=== PATIENT | male | born 1950 | race Caucasian/White ===

== ENCOUNTER 2016-05-04 16:34 | Inpatient (IN) | payer MEDICAID, OTHER ==
[~2016-05-04] VITALS: Ht 167.6 cm; Wt 104.6 kg
[~2016-05-04 16:34] MED LIST: BACTDS PO; CEPH-443 PO; IBUP400T22 PO
[2016-05-04 17:42] LABS: ADD UMIC YES; URINE BILIRUBIN (Dip) NEGATIVE (NEGATIVE); URINE BLOOD (Dip) TRACE (NEGATIVE); URINE COLOR LT. YELLOW (YELLOW); URINE GLUCOSE (Dip) >=1000 % (NEGATIVE); URINE KETONES (Dip) NEGATIVE (NEGATIVE); URINE LEUKOCYTE ESTERASE (Dip) NEGATIVE (NEGATIVE); URINE NITRITE (Dip) NEGATIVE (NEGATIVE); URINE TOTAL PROTEIN (Dip) 2+ (NEGATIVE); URINE UROBILINOGEN (Dip) 0.2 E.U./dL (0.1-1.0)
[2016-05-04 17:44] LABS: BASOPHIL # 0.3 10^3/ul (0.0-0.1); BASOPHILS % 2.2 % (0.0-2.0); EOSINOPHILS # 0.2 10^3/ul (0.0-0.5); EOSINOPHILS % 1.5 % (0.0-7.0); HEMATOCRIT 41.9 % (42.0-52.0); HEMOGLOBIN 13.8 g/dl (14.0-18.0); LYMPHOCYTES # 2.6 10^3/ul (0.8-2.9); LYMPHOCYTES % 20.1 % (15.0-51.0); MEAN CORPUSCULAR HEMOGLOBIN 29.3 pg (29.0-33.0); MEAN CORPUSCULAR VOLUME 88.8 fl (82.0-101.0); MONOCYTE # 0.6 10^3/ul (0.3-0.9); NEUTROPHIL # 9.1 10^3/ul (1.6-7.5); NEUTROPHILS % 71.2 % (39.0-77.0); PLATELET COUNT 277 10^3/UL (140-440); RED BLOOD COUNT 4.71 10^6/ul (4.70-6.10); RED CELL DISTRIBUTION WIDTH 13.9 % (11.5-14.5); UNCORRECTED WBC 12.7 10^3/ul (4.8-10.8); WHITE BLOOD COUNT 12.7 10^3/ul (4.8-10.8)
[2016-05-04 17:45] LABS: CONDITION 1
[2016-05-04] MEDS ORDERED: ASPI-664 PO (17:48)
[2016-05-04] MEDS ORDERED: LISI-313 PO (17:48)
[2016-05-04] MEDS ORDERED: METO25TA7 PO (17:49)
[2016-05-04 17:51] LABS: INR 0.92; POTASSIUM 4.1 mmol/L (3.5-5.1); PROTIME 12.4 Sec (12.2-14.2)
[2016-05-04 17:52] LABS: PARTIAL THROMBOPLASTIN TIME 30.4 Sec (25.0-35.0)
[2016-05-04 17:53] LABS: CREATININE 0.74 mg/dl (0.61-1.24)
[2016-05-04 17:54] LABS: CALCIUM 8.8 mg/dl (8.4-10.2)
--- NOTE | 2016-05-04 17:55 | RADRPT ---
PROCEDURE: XR Chest. CLINICAL INDICATION: Stroke. TECHNIQUE: Portable AP semi-erect view of the chest was obtained. COMPARISON: 04/08/2015 FINDINGS: The cardiomediastinal silhouette is within normal limits. The lungs are clear. There is no evidenc e for pleural effusion, pneumothorax or pulmonary vascular congestion. Degenerative spondylosis of the thoracic spine is again noted. There is no evidence of acute osseous abnormality. Previously se en PICC is been removed in the interval. RPTAT:HJJR IMPRESSION: No evidence for acute intrathoracic pathology. Physician Kera Date Time Electronically viewed and signed by Physician Kera on 05/04/2016 17:55 JR/
[2016-05-04 18:05] LABS: CANNABINOIDS Negative (NEGATIVE); COCAINE Negative (NEGATIVE); OPIATES Negative (NEGATIVE); SQUAMOUS EPITHELIAL CELL,UR FEW; URINE RBCS 0-2 /HPF (0)
[2016-05-04 18:06] LABS: TROPONIN-I 0.013 ng/ml (0.00-0.12)
[2016-05-04 18:21] LABS: BARBITURATES Negative (NEGATIVE); BENZODIAZEPINES Negative (NEGATIVE)
--- NOTE | 2016-05-04 18:41 | RADRPT ---
PROCEDURE: CT Brain without. CLINICAL INDICATION: CVA. TECHNIQUE: A CT of the brain was performed on multidetector high-resolution CT scanner utilizing a xial sections from the skull base through the vertex without contrast. The scan was reviewed in sof t tissue brain and high frequency resolution bone algorithm windows. Images were reviewed on a high -resolution PACS workstation. One or more the following does reduction techniques were utilized: Aut omated exposure control, adjustment of the mA/ or kV according to patient's size, or use of iterativ e reconstruction technique. The exam CTDI = 50.55 mGy and the DLP = 817.78 mGy-cm. COMPARISON: None available. FINDINGS: The ventricles and sulci are mildly prominent indicative of volume loss. There is no intracranial he morrhage, mass effect or midline shift. No abnormal intra-axial or extra-axial fluid collections ar e seen. The astorga/white matter differentiation is preserved. There is an 8 mm focal hypodensity in th e right negrete radiata which likely represent an age indeterminate infarct. There are mild scattered foci of hypoattenuation in the white matter, which are nonspecific in etiol ogy but likely reflect chronic small vessel ischemic changes. There are mild intracranial vascular calcifications consistent with atherosclerosis. The visualized paranasal sinuses are essentially carloz ar. IMPRESSION: 1. An 8 mm age indeterminate infarct in the right negrete radiata. Please note MRI is more sensitive for detection of acute ischemia and can be obtained as clinically warranted. 2. Mild intracranial atherosclerosis and chronic small vessel ischemic changes. 3. Mild generalized cerebral volume loss. RPTAT: HH .Ranjana Hudson MD, MD Date Time Electronically viewed and signed by .Ranjana Hudson MD, MD on 05/04/2016 18:40 .N/
[2016-05-04] MEDS ORDERED: ASPIRIN 325 MG TAB PO ONE (19:00)
[2016-05-04] MEDS ORDERED: SOD CHLORIDE 0.9% 1,000 ML IV SCH (19:20)
--- NOTE | 2016-05-04 19:25 | ERA ---
ER Documentation Chief Complaint Date/Time DATE: 05/04/16 TIME: 19:22 Chief Complaint slurring speech. unknown last well time. l side facial droop. l leg weaknes HPI This is a 65-year-old male who presents to the emergency room for evaluation of slurred speech, and left-sided facial droop which started at 4 AM this morning. The patient is also complaining of left leg weakness when walking. The patient states that he did not come to the emergency room because he did not have a ride. This patient denies any other symptoms or blurred vision or chest pain or shortness of breath at this time ROS All systems reviewed and are negative except as per history of present illness. Medications Home Meds Reported Medications Metoprolol Succinate* (Toprol XL*) 25 Mg Tab.sr.24h, 25 MG PO DAILY, #30 TAB 05/04/16 Lisinopril* (Lisinopril*) 5 Mg Tablet, 5 MG PO DAILY, #30 TAB 05/04/16 Aspirin* (Aspirin* EC) 81 Mg Tablet.dr, 81 MG PO DAILY, TAB 05/04/16 Discontinued Scripts Ibuprofen* (Motrin*) 400 Mg Tab, 400 MG PO Q6 for 7 Days, #30 TAB 0 Refills Prov:HASEEB LÓPEZ PA-C 01/23/16 Sulfamethoxazole-Trimethoprim* (Bactrim* DS) 800-160 Mg Tab, 1 TAB PO BID for 7 Days, #14 TAB 0 Refills Prov:HASEEB LÓPEZ PA-C 01/23/16 Cephalexin* (Keflex*) 500 Mg Capsule, 500 MG PO TID for 7 Days, #21 CAP 0 Refills Prov:HASEEB LÓPEZ PA-C 01/23/16 Allergies Allergies: Coded Allergies: No Known Allergy (Unverified , 05/04/16) PMhx/Soc History of Surgery: Yes (debridement L foot) Hx Neurological Disorder: No Hx Respiratory Disorders: No Hx Cardiac Disorders: Yes (HTN) Hx Psychiatric Problems: No Hx Miscellaneous Medical Probl: Yes (DM, HTN) Hx Alcohol Use: No Hx Substance Use: No Hx Tobacco Use: No Smoking Status: Never smoker Physical Exam Vitals Vital Signs Date Time Temp Pulse Resp B/P Pulse Ox O2 Delivery O2 Flow Rate FiO2 05/04/16 19:04 98.6 80 18 164/83 99 Room Air 05/04/16 18:07 83 18 133/69 99 Room Air 05/04/16 16:38 98.6 89 20 176/81 99 Physical Exam INITIAL VITAL SIGNS: Reviewed by me GENERAL: The patient is well developed and appropriate for usual state of health in no apparent distress HEENT: Pupils equal, round, and reactive to light. EOMI. There is no scleral icterus. NECK: C-spine is soft and supple, there is no meningismus. There is no cervical lymphadenopathy. LUNGS: Clear to auscultation bilaterally. There are no rales, wheezes or rhonchi. HEART: Regular rate and rhythm, no murmurs, clicks, rubs or gallops. ABDOMEN: Soft, non-tender, non-distended. There are bowel sounds in all four quadrants. No rebound or guarding. EXTREMITIES: There is no peripheral cyanosis or edema. No focal swelling or erythema. NEUROLOGICAL: 5 out of 5 strength in the right upper and right lower extremity, 3 out of 5 strength in the left upper and left lower extremity. Left-sided facial droop, slurred speech, no disability in raising left eyebrow. SKIN: There is no apparent rash or petechiae. HEME/LYMPHATIC: There is no evidence of excessive bruising or lymphedema. PSYCHIATRIC: The patient does not appear anxious or depressed. Result Diagram: 05/04/16 1715 05/04/16 171 Results 24 hrs Laboratory Tests Test 05/04/16 17:15 05/04/16 17:20 Activated Partial Thromboplast Time 30.4Sec Anion Gap 15 Basophils # 0.310^3/ul Basophils % 2.2% Blood Urea Nitrogen 13mg/dl Calcium Level 8.8mg/dl Carbon Dioxide Level 29mmol/L Chloride Level 101mmol/L Creatinine 0.74mg/dl Eosinophils # 0.210^3/ul Eosinophils % 1.5% Glucose Level 297mg/dl Hematocrit 41.9% Hemoglobin 13.8g/dl Hemoglobin A1c 13.2% INR International Normalized Ratio 0.92 Lymphocytes # 2.610^3/ul Lymphocytes % 20.1% Mean Corpuscular Hemoglobin 29.3pg Mean Corpuscular Hemoglobin Concent 33.0g/dl Mean Corpuscular Volume 88.8fl Mean Platelet Volume 10.0fl Monocytes # 0.610^3/ul Monocytes % 5.0% Neutrophils # 9.110^3/ul Neutrophils % 71.2% Nucleated Red Blood Cells # 0.010^3/ul Nucleated Red Blood Cells % 0.0/100WBC Platelet Count 29040^3/UL Potassium Level 4.1mmol/L Prothrombin Time 12.4Sec Prothrombin Time Ratio 1.0 Red Blood Count 4.7110^6/ul Red Cell Distribution Width 13.9% Sodium Level 141mmol/L Troponin I 0.013ng/ml White Blood Count 12.710^3/ul Urine Amphetamines Screen Negative Urine Barbiturates Negative Urine Benzodiazepines Screen Negative Urine Bilirubin NEGATIVE Urine Cannabinoids Negative Urine Clarity CLEAR Urine Cocaine Screen Negative Urine Color LT. YELLOW Urine Glucose >=1000% Urine Hemoglobin TRACE Urine Ketones NEGATIVE Urine Leukocyte Esterase NEGATIVE Urine Microscopic RBC 0-2/HPF Urine Microscopic WBC NONE SEEN/HPF Urine Nitrite NEGATIVE Urine Opiates Screen Negative Urine Specific [place] >=1.030 Urine Squamous Epithelial Cells FEW Urine Total Protein 2+ Urine Urobilinogen 0.2 E.U./dL Urine pH 5.5 Current Medications Medications (Trade) Dose Ordered Sig/Kalina Route PRN Reason Start Time Stop Time Status Last Admin Dose Admin Aspirin (Aspirin) 325 mg ONCE ONCE PO 05/04/16 19:00 05/04/16 19:01 DC Procedures/MDM EKG: Rate/Rhythm: [Normal Sinus Rhythm] QRS, ST, T-waves: [No changes consistent w/ acute ischemia] Impression: [No evidence of ischemia or arrhythmia] Chest X-ray 1V Interpreted by me: Soft Tissue: No acute abnormalities Bones: No acute abnormalities Mediastinum/Cardiac Silhouette/Lungs: [No acute abnormalities] CT head without: 1. An 8 mm age indeterminate infarct in the right negrete radiata. Please note MRI is more sensitive for detection of acute ischemia and can be obtained as clinically warranted. 2. Mild intracranial atherosclerosis and chronic small vessel ischemic changes. 3. Mild generalized cerebral volume loss. This 65-year-old male presents to the ER for evaluation of slurred speech, and left-sided weakness. When I evaluated him he did have a facial droop, slurred speech, and left upper and left lower extremity weakness when compared to the right. CT of the head was obtained which does show an 8 mm age-indeterminate infarct in the right negrete radiata. This patient was given aspirin, was able to pass a bedside swallow. This patient is out of the timeframe for TPA. He is in no acute distress at this time. This patient will be placed in for admission for further evaluation and possible MRI. The patient is aware of his condition and is okay with her plan of care. The patient will be placed in for admission on a telemetry floor under the care of Dr. Rehman Departure Diagnosis: Primary Impression: CVA (cerebral vascular accident) Additional Impressions: Elevated glycosylated hemoglobin Uncontrolled diabetes mellitus Condition: Stable OZZIE LEMONS DO May 04, 2016 19:25
[2016-05-04] MEDS ORDERED: BISACODYL (EC) 5 MG TAB PO PRN (19:30)
[2016-05-04] MEDS ORDERED: ONDANSETRON 4 MG TAB PO PRN (19:30)
[2016-05-04] MEDS ORDERED: NITROGLYCERIN (SL) 0.4 MG TAB SL PRN (19:30)
[2016-05-04] MEDS ORDERED: ACETAMINOPHEN 325 MG TAB PO PRN ×2 (19:30)
[2016-05-04] MEDS ORDERED: NACL 0.9% 3 ML SYG IV SCH (19:30)
[2016-05-04] MEDS ORDERED: DOCUSATE SODIUM 100 MG CAP PO PRN (19:30)
[2016-05-04] MEDS ORDERED: ONDANSETRON 4 MG INJ IV PRN (19:30)
[2016-05-04] MEDS ORDERED: ACETAMINOPHEN 650 MG SUPP PR PRN (19:30)
[2016-05-04] MEDS ORDERED: INSULIN GLARGINE [LANtus] 3 ML PEN SC SCH (20:00)
[2016-05-04] MEDS ORDERED: GLUCOSE GEL 15 GRAM TUBE BUCCAL PRN (20:00)
[2016-05-04] MEDS ORDERED: GLUCOSE GEL 15 GRAM TUBE PO PRN ×2 (20:00)
[2016-05-04] MEDS ORDERED: GLUCAGON 1 MG INJ IM PRN (20:00)
[2016-05-04] MEDS ORDERED: DEXTROSE 50% 50 ML SYRINGE IV PRN ×2 (20:00)
[2016-05-04] MEDS: INSULIN ASPART [NOVOLOG] 3 ML PEN SC SCH (21:00)
--- NOTE | 2016-05-04 21:07 | RADRPT ---
PROCEDURE: US Lower extremity Venous. CLINICAL INDICATION: Pain and swelling. TECHNIQUE: Multiple sonographic images of the bilateral lower extremity deep venous system was obt ained utilizing grayscale, color-flow, compressive sonography and doppler imaging with augmentation. The images were reviewed on a PACS workstation. COMPARISON: None. FINDINGS: There is normal compressibility and flow within the bilateral common femoral, deep femoral, superfic ial femoral, right posterior tibial, peroneal and bilateral popliteal veins. Nonvisualization of th e left posterior tibial and peroneal veins secondary to marked lower extremity edema. IMPRESSION: No sonographic evidence for deep venous thrombosis. RPTAT:AAJJ Physician Kelley Date Time Electronically viewed and signed by Physician Kelley on 05/04/2016 21:07 LIZETTE/
[2016-05-04 21:08] VITALS: TEMP 98
--- NOTE | 2016-05-04 21:10 | RADRPT ---
PROCEDURE: Carotid Doppler ultrasound CLINICAL INDICATION: Carotid stenosis. CVA TECHNIQUE: Carotid duplex criteria: Multiple real time, astorga scale, and color flow and spectral w aveform analysis Doppler ultrasound images of the carotid bifurcations were obtained. Measurements of carotid stenosis is based on peak systolic and diastolic velocity parameters that correlate the r esidual internal carotid diameter with [place] symptomatic carotid endarterectomy trial (NASC ET) based stenosis levels. COMPARISON: None. FINDINGS: On the right, there is no significant plaque at the internal carotid artery bulb . The peak ICA velocity is 79.0 cm/sec. The ICA/CCA ratio there is 1.5. There is no spectral broadening . The external carotid artery is patent. The vertebral artery has antegrade flow. On the left, there is no significant plaque at the internal carotid artery bulb . The peak ICA velocity is 57.0 cm/sec. The ICA/CCA ratio there is 1.7. There is no spectral broadening . The external carotid artery is patent. The vertebral artery has antegrade flow. IMPRESSION: 1. No significant stenosis of the right internal carotid artery. 2. No significant stenosis of the left internal carotid artery. 3. Antegrade flow in the vertebral arteries. PRIMARY PARAMETERS ADDITIONAL PARAMETERS DEGREE OF STENOSIS: ICA PSV cm/s PLAQUE ESTIMATE % ICA/CCA PSV RATIO ICA E DV cm/s NORMAL <125 cm/s NONE < 2.0 < 40 cm/s < 50% >125 cm/s < 50% > 2.0 > 40 cm/s 50% - 69% 125 -230 cm/s > 50% 2.0 - 4.0 40 - 100 cm/s >70% < OCCLUSION > 230 cm/s > 70% > 4.0 > 100 cm/s TOTAL OCCLUSION UNDETECTABLE VISIBLE PLAQUE 100% N/A N/A Physician Kelley Date Time Electronically viewed and signed by Physician Kelley on 05/04/2016 21:10 LIZETTE/
[2016-05-04 21:45] VITALS: BP 156/80; PULSE 73; RESP 20; Ht 167.6 cm; Wt 104.6 kg
--- NOTE | 2016-05-04 23:53 | HP ---
DATE OF ADMISSION: 05/04/2016 DIRECTOR OF INTEGRATED MARKETING: Neurologist. CHIEF COMPLAINT: Right-sided facial droop. HISTORY OF PRESENT ILLNESS: This is a 65-year-old gentleman, past medical history of diabetes ezioi tus, hypertension, CVA, left lower extremity cellulitis who according to him had a CVA about 3 month s ago, and he did not follow up with any physician, but a month later he was seen at [facility] and was diagnosed with CVA. He also has been having left lower extremity erythema and was diagnosed wit h cellulitis and was discharged from [facility] with a PICC line and IV antibiotics x4 weeks and the n was placed on oral antibiotics. Yesterday morning on 05/03/2016 at 5 a.m., he woke up with left l ower extremity weakness and right-sided facial droop, and he thought that the symptoms would go away . Therefore, he did not seek any medical attention. Today on 05/04/2016, he presented to [facility] secondary to continued facial droop. CT of the brain was obtained which showed an 8 mm age-indeterminate infarct in the right negrete radiata, mild intracranial atherosclerosis and chronic small-vessel ischemic changes, mild general cerebral volume loss. The patient also has a h istory of hypertension, diabetes mellitus, dyslipidemia, and he has not been compliant with his Lant us. According to him, he has been lazy and has not gone to get his medication. He is a very poor h istorian, and he states that he sometimes takes some of his medication if he remembers to take them. Today upon arrival to emergency room, his temperature was 98.6, pulse 89, respirations 20, blood p ressure 176/81, oxygen saturation 99%. He denies having any chest pain, shortness of breath, nausea , vomiting, diarrhea. No headache, dizziness, lightheadedness. No change in visual acuity, diplopi a, photophobia. Positive for right-sided facial droop and left lower extremity weakness. No abdomi nal pain, no dysuria, no hematuria, no change in the color of stool. No hematemesis, melena or any other discomfort. PAST MEDICAL AND SURGICAL HISTORY: 1. Hypertension. 2. Morbid obesity. 3. Diabetes mellitus. 4. Noncompliance with medication. 5. Morbid obesity. 6. Left lower extremity cellulitis. 7. History of osteomyelitis of the left foot. 8. Diabetic neuropathy. 9. History of CVA with left-sided residual. MEDICATIONS: 1. Aspirin 81 mg. 2. Lisinopril 5 mg. 3. Toprol-XL 25 mg. 4. He also is supposed to be on Lantus, although he has been noncompliant with his Lantus. SOCIAL HISTORY: Never smoked. Remote history of alcohol use. No illicit drugs. FAMILY HISTORY: Positive for hypertension, diabetes mellitus and dyslipidemia. REVIEW OF SYSTEMS: As above per HPI. Otherwise, 12 review of systems have been found to be negativ e. PHYSICAL EXAMINATION: VITAL SIGNS: At this time, temperature 98.0, pulse 74, respirations 21, blood pressure 154/77, satu ration 99% on room air. GENERAL APPEARANCE: The patient is lying in the bed comfortably without any distress. He is awake, alert, oriented. He is able to answer my questions properly. The patient is morbidly obese. EYES, EARS, NOSE, THROAT: Conjunctivae and lids are normal. Pupils are normal. Extraocular normal . Hearing grossly normal. Oral mucosa moist. NECK: Supple. Trachea is midline. No lymphadenopathy. RESPIRATORY: Effort is normal. Clear to auscultate bilaterally. CARDIOVASCULAR: Normal S1, S2. Regular rhythm and rate. No murmur, no bruits, no edema. Peripher al pulses, radial pulses palpable. Capillary refill is normal. CHEST: Normal expansion during inspiration. ABDOMEN: Soft, nontender, not distended. Bowel sounds are present. No guarding, no rebound. GENITOURINARY: Deferred. MUSCULOSKELETAL: Upper extremities within normal limits. Lower extremities, there is significant d ifference between edema, swelling between right and left lower extremities. The left extremity, the re is evidence of cellulitis with stasis dermatitis from ankle down and nonpitting edema in left low er extremity ____. NEUROLOGIC: There is evidence of facial droop on the right side. Cranial nerves 2 to 12 seem gross ly intact. PSYCHIATRIC: He is awake, alert, is able to move his extremities. Motor is intact. LABORATORY WORK: WBC 12.7, hemoglobin 13.8, hematocrit 41.9, platelets 277. Sodium 141, potassium 4.1, chloride 101, bicarbonate 29, BUN 13, creatinine 0.74, glucose 294. Hemoglobin A1c 13.2. Calc ium 8.8. Troponin 0.013. ASSESSMENT AND PLAN: 1. Acute on chronic cerebrovascular accident with an 8 mm age-indeterminate infarct in the right co yenni radiata. We will obtain MRI of the brain, carotid Doppler, 2D echocardiogram. The patient has been placed on aspirin. Will follow up patient's lipid panel. Continue to monitor patient's blood pressure and treat accordingly. 2. Uncontrolled diabetes mellitus. Place the patient on insulin sliding scale, Lantus, low-carbohy drate diet. 3. Essential hypertension, mildly uncontrolled. Continue blood pressure medication. Will also nae ce the patient on p.r.n. hydralazine. 4. Noncompliance with medication. Education was provided. 5. Left lower extremity edema with no sonographic evidence of deep venous thrombosis. This is like ly secondary to chronic diabetic neuropathy and infection. Will start the patient on Levaquin. 6. Morbid obesity. Diet has been recommended. The patient will be recommended to be placed on low -calorie diet. 7. For deep venous thrombosis prophylaxis, on Lovenox. 8. For gastrointestinal prophylaxis, on proton pump inhibitor. 9. Continue to monitor patient closely. Further recommendations, management and treatment as per c reiical course. Total amount of time spent for evaluation of patient and admission workup was 40 minutes. Dictated By: ROXY SIMPSON/NTS Conf#: [id number] DID#: [id number]
[2016-05-05] VITALS (12 sets, daily range): BP systolic 134–166; BP diastolic 65–87; PULSE 71–140; RESP 17–20
[2016-05-05] MEDS: PANTOPRAZOLE (EC) 40 MG TAB PO SCH (05:34)
[2016-05-05] MEDS: ASPIRIN 81 MG TAB PO SCH (08:54)
[2016-05-05] MEDS: LISINOPRIL 5 MG TAB PO SCH (08:54)
[2016-05-05] MEDS: METOPROLOL (XL) 25 MG TAB PO SCH (08:55)
[2016-05-05] MEDS: ENOXAPARIN 40 MG/0.4 ML SYG SC SCH (08:57)
[2016-05-05] MEDS: INSULIN ASPART [NOVOLOG] 3 ML PEN SC SCH ×4 (08:58→21:36)
[2016-05-05 10:28] LABS: BASOPHILS % 0.3 % (0.0-2.0); EOSINOPHILS # 0.2 10^3/ul (0.0-0.5); EOSINOPHILS % 1.4 % (0.0-7.0); HEMATOCRIT 42.6 % (42.0-52.0); HEMOGLOBIN 13.9 g/dl (14.0-18.0); LYMPHOCYTES % 16.5 % (15.0-51.0); MEAN CORPUSCULAR HEMOGLOBIN 29.5 pg (29.0-33.0); MEAN CORPUSCULAR HGB CONC 32.6 g/dl (32.0-37.0); MEAN CORPUSCULAR VOLUME 90.4 fl (82.0-101.0); MEAN PLATELET VOLUME 11.2 fl (7.4-10.4); MONOCYTE # 0.6 10^3/ul (0.3-0.9); MONOCYTES % 4.7 % (0.0-11.0); NEUTROPHIL # 9.5 10^3/ul (1.6-7.5); NEUTROPHILS % 76.5 % (39.0-77.0); PLATELET COUNT 310 10^3/UL (140-415); RED BLOOD COUNT 4.71 10^6/ul (4.70-6.10); RED CELL DISTRIBUTION WIDTH 13.2 % (11.5-14.5); WHITE BLOOD COUNT 12.4 10^3/ul (4.8-10.8)
[2016-05-05 10:38] LABS: CREATININE 0.63 mg/dl (0.61-1.24)
[2016-05-05 10:39] LABS: CALCIUM 8.8 mg/dl (8.4-10.2); CHOL/HDL RATIO 5.1 RATIO; MAGNESIUM 1.9 mg/dl (1.7-2.5)
--- NOTE | 2016-05-05 11:47 | PN ---
Date/Time of Note Date/Time of Note DATE: 05/05/16 TIME: 11:37 Assessment/Plan VTE Prophylaxis VTE Prophylaxis Intervention: LMWH Lines/Catheters IV [facility]ter [facility] (from [facility] Peripheral IV Urinary Cath still in place: No Assessment/Plan Assessment/Plan 1. Acute on chronic cerebrovascular accident with an 8 mm age-indeterminate infarct in the right negrete radiata. We will obtain MRI of the brain, carotid Doppler, 2D echocardiogram. MRI pending . 2. Uncontrolled diabetes mellitus. Place the patient on insulin sliding scale , Lantus, low-carbohydrate diet. 3. Essential hypertension, mildly uncontrolled. Continue blood pressure medication. Will also place the patient on p.r.n. hydralazine. 4. Noncompliance with medication. Education was provided. 5. Left lower extremity edema with no sonographic evidence of deep venous thrombosis. This is likely secondary to chronic diabetic neuropathy and infection. Will start the patient on Levaquin. 6. Morbid obesity. Diet has been recommended. The patient will be recommended to be placed on low-calorie diet. 7. For deep venous thrombosis prophylaxis, on Lovenox. 8. For gastrointestinal prophylaxis, on proton pump inhibitor. 9. Continue to monitor patient closely. Further recommendations, management and treatment as per clinical course. Total amount of time spent for evaluation of patient and admission workup was 40 minutes. Subjective 24 Hr Interval Summary Free Text/Dictation awaitign MRI brain, Possible acute on chronic CVA, no focal deficits Exam/Review of Systems Vital Signs Vitals Vital Signs Date Time Temp Pulse Resp B/P Pulse Ox O2 Delivery O2 Flow Rate FiO2 05/05/16 10:11 136/68 05/05/16 08:16 98.5 77 20 96 05/05/16 04:00 Room Air Intake and Output 05/04/16 05/04/16 05/05/16 15:00 23:00 07:00 Intake Total 350 ml Balance 350 ml Exam GENERAL APPEARANCE: no acute distress EYES, EARS, NOSE, THROAT: Conjunctivae and lids are normal. Pupils are normal. Extraocular normal. Hearing grossly normal. Oral mucosa moist. NECK: Supple. Trachea is midline. No lymphadenopathy. RESPIRATORY: Effort is normal. Clear to auscultate bilaterally. CARDIOVASCULAR: Normal S1, S2. RRR, no murmur CHEST: Normal expansion during inspiration. ABDOMEN: Soft, nontender, not distended. Bowel sounds are present. No guarding, no rebound. GENITOURINARY: Deferred. MUSCULOSKELETAL: Upper extremities within normal limits. Lower extremities, there is significant difference between edema, swelling between right and left lower extremities. The left extremity, there is evidence of cellulitis with stasis dermatitis from ankle down and nonpitting edema in left lower extremity _ ___. NEUROLOGIC: There is evidence of facial droop on the right side. Cranial nerves 2 to 12 seem grossly intact. PSYCHIATRIC: He is awake, alert, is able to move his extremities. Motor is intact. Results Result Diagram: 05/05/16 0959 05/05/16 0959 Results 24 hrs Laboratory Tests Test 05/04/16 17:15 05/04/16 17:20 05/04/16 22:07 05/05/16 07:41 Activated Partial Thromboplast Time 30.4 Anion Gap 15 Basophils # 0.3 H Basophils % 2.2 H Blood Urea Nitrogen 13 Calcium Level 8.8 Carbon Dioxide Level 29 Chloride Level 101 Creatinine 0.74 Eosinophils # 0.2 Eosinophils % 1.5 Glucose Level 297 H Hematocrit 41.9 #L Hemoglobin 13.8 #L Hemoglobin A1c 13.2 H INR International Normalized Ratio 0.92 Lymphocytes # 2.6 Lymphocytes % 20.1 Mean Corpuscular Hemoglobin 29.3 Mean Corpuscular Hemoglobin Concent 33.0 Mean Corpuscular Volume 88.8 Mean Platelet Volume 10.0 Monocytes # 0.6 Monocytes % 5.0 Neutrophils # 9.1 H Neutrophils % 71.2 Nucleated Red Blood Cells # 0.0 Nucleated Red Blood Cells % 0.0 Platelet Count 277 # Potassium Level 4.1 Prothrombin Time 12.4 Prothrombin Time Ratio 1.0 Red Blood Count 4.71 # Red Cell Distribution Width 13.9 Sodium Level 141 Troponin I 0.013 White Blood Count 12.7 H Urine Amphetamines Screen Negative Urine Barbiturates Negative Urine Benzodiazepines Screen Negative Urine Bilirubin NEGATIVE Urine Cannabinoids Negative Urine Clarity CLEAR Urine Cocaine Screen Negative Urine Color LT. YELLOW Urine Glucose >=1000 Urine Hemoglobin TRACE Urine Ketones NEGATIVE Urine Leukocyte Esterase NEGATIVE Urine Microscopic RBC 0-2 Urine Microscopic WBC NONE SEEN Urine Nitrite NEGATIVE Urine Opiates Screen Negative Urine Specific [place] >=1.030 H Urine Squamous Epithelial Cells FEW Urine Total Protein 2+ H Urine Urobilinogen 0.2 E.U./dL Urine pH 5.5 Bedside Glucose 151 179 Test 05/05/16 09:59 Anion Gap 17 H Basophils # 0.0 Basophils % 0.3 Blood Urea Nitrogen 11 Calcium Level 8.8 Carbon Dioxide Level 26 Chloride Level 104 Cholesterol Level 144 Cholesterol/HDL Ratio 5.1 Creatinine 0.63 Eosinophils # 0.2 Eosinophils % 1.4 Glucose Level 240 H HDL Cholesterol 28 L Hematocrit 42.6 Hemoglobin 13.9 L LDL Cholesterol, Calculated 95 Lymphocytes # 2.0 Lymphocytes % 16.5 Magnesium Level 1.9 Mean Corpuscular Hemoglobin 29.5 Mean Corpuscular Hemoglobin Concent 32.6 Mean Corpuscular Volume 90.4 Mean Platelet Volume 11.2 H Monocytes # 0.6 Monocytes % 4.7 Neutrophils # 9.5 H Neutrophils % 76.5 Nucleated Red Blood Cells # 0.0 Nucleated Red Blood Cells % 0.0 Platelet Count 310 Potassium Level 4.0 Red Blood Count 4.71 Red Cell Distribution Width 13.2 Sodium Level 143 Thyroid Stimulating Hormone (TSH) Pending Triglycerides Level 107 White Blood Count 12.4 H Medications Medications Current Medications Ondansetron HCl (Zofran Tab) 4 mg Q6H PRN PO NAUSEA AND/OR VOMITING; Start at 19:30 Aspirin (Aspirin) 81 mg DAILY PO Last administered on 05/05/16 08:54; Admin Dose 81 MG; Start 05/05/16 at 09:00 Nitroglycerin (Nitroglycerin (Sl Tab) 0.4 Mg) 1 tab Q5M PRN SL CHEST PAIN; Start 05/04/16 at 19:30 Acetaminophen (Tylenol Tab) 650 mg Q6H PRN PO PAIN LEVEL 1-3 OR FEVER; Start at 19:30 Acetaminophen (Tylenol Supp) 650 mg Q6H PRN [place] PAIN LEVEL 1-3 OR FEVER; Start 05/04/16 at 19:30 Docusate Sodium (Colace) 100 mg Q12H PRN PO CONSTIPATION; Start 05/04/16 at 19: 30 Bisacodyl (Dulcolax) 5 mg DAILY PRN PO CONSTIPATION; Start 05/04/16 at 19:30 Pantoprazole (Protonix Tab) 40 mg DAILY@06 PO Last administered on 05/05/16 05 :34; Admin Dose 40 MG; Start 05/05/16 at 06:00 Enoxaparin Sodium (Lovenox) 40 mg DAILY SC Last administered on 05/05/16 08:57 ; Admin Dose 40 MG; Start 05/05/16 at 09:00 Lisinopril (Zestril) 5 mg DAILY PO Last administered on 05/05/16 08:54; Admin Dose 5 MG; Start 05/05/16 at 09:00 Metoprolol Succinate (Toprol Xl) 25 mg DAILY PO Last administered on 05/05/16 08:55; Admin Dose 25 MG; Start 05/05/16 at 09:00 Insulin Glargine (Lantus) 10 unit DAILY@20 SC Last administered on 05/04/16 22 :28; Admin Dose 10 UNIT; Start 05/04/16 at 20:00 Miscellaneous Information 1 ea NOTE XX ; Start 05/04/16 at 20:00 Glucose (Glutose) 15 gm Q15M PRN PO DECREASED GLUCOSE; Start 05/04/16 at 20:00 Glucose (Glutose) 22.5 gm Q15M PRN PO DECREASED GLUCOSE; Start 05/04/16 at 20: 00 Dextrose (D50w Syringe) 25 ml Q15M PRN IV DECREASED GLUCOSE; Start 05/04/16 at 20:00 Dextrose (D50w Syringe) 50 ml Q15M PRN IV DECREASED GLUCOSE; Start 05/04/16 at 20:00 Glucagon (Glucagen) 1 mg Q15M PRN IM DECREASED GLUCOSE; Start 05/04/16 at 20:00 Glucose (Glutose) 15 gm Q15M PRN BUCCAL DECREASED GLUCOSE; Start 05/04/16 at 20 :00 JOO RAMIREZ MD May 05, 2016 11:47
--- NOTE | 2016-05-05 11:51 | CONS ---
Date/Time of Note Date/Time of Note DATE: 05/05/16 TIME: 11:38 Assessment/Plan Assessment/Plan Chief Complaint/Hosp Course 65 year old male with history of obesity, HTN, HLD, previous CVA, recently treated for cellulitis, uncontrolled DM non-compliant with medications presenting with facial droop and left sided weakness. CTH suggestive of right negrete radiata infarct admitted for further work up. etiology likely small vessel disease secondary to uncontrolled risk factors. Carotid duplex: no significant stenosis LDL:95 HBA1C: 13.2% -MRI Brain without contrast, MRA Head neck ordered -continue on aspirin 81 mg for secondary stroke prevention -initiate Lipitor 20 mg qhs -insulin dosing to be adjusted for optimal control of diabetes -baseline ECHO -DVT ppx -PT/OT/Speech -will follow for further recommendations Problems: Consultation Date/Type/Reason Admit Date/Time May 04, 2016 at 19:21 Date of Consultation: May 05, 2016 Type of Consultation: Neurology Reason for Consultation left facial droop CVA work up Referring Provider: ROXY JEFF MD Hx of Present Illness 65 year old male with history of diabetes, HTN, previous CVA 3 months ago, recent admission for LE cellulitis treated with PICC Line and IV antibiotics up to 4 weeks and transitioned to oral antibiotics, awoke on 05/03 at 5 am with facial droop, dysarthria and left sided leg weakness. He reports non-compliance with medications and waited a day before coming into the hospital for evaluation. CTH showed right negrete radiata hypodensity admitted for further work up. facial droop, left leg weakness dysarthria Past Medical History DM HTN previous CVA obesity cellulitis Social History Alcohol Use: none Smoking Status: Unknown if ever smoked Exam/Review of Systems Vital Signs Vitals Vital Signs Date Time Temp Pulse Resp B/P Pulse Ox O2 Delivery O2 Flow Rate FiO2 05/05/16 10:11 136/68 05/05/16 08:16 98.5 77 20 96 05/05/16 04:00 Room Air Intake and Output 05/04/16 05/04/16 05/05/16 15:00 23:00 07:00 Intake Total 350 ml Balance 350 ml Exam awake and alert oriented to self, hospital, date NAD, morbidly obese names and repeats following all commands well no aphasia no neglect CN: ELLE, VFF, blinks to threat appropriately, left UMN facial droop moderate dysarthria, palate upgoing uvula midline scm/trap intact Motor: slight finger curl on left arm, can maintain up to 10 seconds without drift in arm strength full in both arms and legs, no drift in LE Coordination: no ataxia on FTN testing Results Result Diagram: 05/05/16 0959 05/05/16 0959 Results 24 hrs Laboratory Tests Test 05/04/16 17:15 05/04/16 17:20 05/04/16 22:07 05/05/16 07:41 Activated Partial Thromboplast Time 30.4 Anion Gap 15 Basophils # 0.3 H Basophils % 2.2 H Blood Urea Nitrogen 13 Calcium Level 8.8 Carbon Dioxide Level 29 Chloride Level 101 Creatinine 0.74 Eosinophils # 0.2 Eosinophils % 1.5 Glucose Level 297 H Hematocrit 41.9 #L Hemoglobin 13.8 #L Hemoglobin A1c 13.2 H INR International Normalized Ratio 0.92 Lymphocytes # 2.6 Lymphocytes % 20.1 Mean Corpuscular Hemoglobin 29.3 Mean Corpuscular Hemoglobin Concent 33.0 Mean Corpuscular Volume 88.8 Mean Platelet Volume 10.0 Monocytes # 0.6 Monocytes % 5.0 Neutrophils # 9.1 H Neutrophils % 71.2 Nucleated Red Blood Cells # 0.0 Nucleated Red Blood Cells % 0.0 Platelet Count 277 # Potassium Level 4.1 Prothrombin Time 12.4 Prothrombin Time Ratio 1.0 Red Blood Count 4.71 # Red Cell Distribution Width 13.9 Sodium Level 141 Troponin I 0.013 White Blood Count 12.7 H Urine Amphetamines Screen Negative Urine Barbiturates Negative Urine Benzodiazepines Screen Negative Urine Bilirubin NEGATIVE Urine Cannabinoids Negative Urine Clarity CLEAR Urine Cocaine Screen Negative Urine Color LT. YELLOW Urine Glucose >=1000 Urine Hemoglobin TRACE Urine Ketones NEGATIVE Urine Leukocyte Esterase NEGATIVE Urine Microscopic RBC 0-2 Urine Microscopic WBC NONE SEEN Urine Nitrite NEGATIVE Urine Opiates Screen Negative Urine Specific [place] >=1.030 H Urine Squamous Epithelial Cells FEW Urine Total Protein 2+ H Urine Urobilinogen 0.2 E.U./dL Urine pH 5.5 Bedside Glucose 151 179 Test 05/05/16 09:59 Anion Gap 17 H Basophils # 0.0 Basophils % 0.3 Blood Urea Nitrogen 11 Calcium Level 8.8 Carbon Dioxide Level 26 Chloride Level 104 Cholesterol Level 144 Cholesterol/HDL Ratio 5.1 Creatinine 0.63 Eosinophils # 0.2 Eosinophils % 1.4 Glucose Level 240 H HDL Cholesterol 28 L Hematocrit 42.6 Hemoglobin 13.9 L LDL Cholesterol, Calculated 95 Lymphocytes # 2.0 Lymphocytes % 16.5 Magnesium Level 1.9 Mean Corpuscular Hemoglobin 29.5 Mean Corpuscular Hemoglobin Concent 32.6 Mean Corpuscular Volume 90.4 Mean Platelet Volume 11.2 H Monocytes # 0.6 Monocytes % 4.7 Neutrophils # 9.5 H Neutrophils % 76.5 Nucleated Red Blood Cells # 0.0 Nucleated Red Blood Cells % 0.0 Platelet Count 310 Potassium Level 4.0 Red Blood Count 4.71 Red Cell Distribution Width 13.2 Sodium Level 143 Thyroid Stimulating Hormone (TSH) Pending Triglycerides Level 107 White Blood Count 12.4 H Medications Medications Current Medications Ondansetron HCl (Zofran Tab) 4 mg Q6H PRN PO NAUSEA AND/OR VOMITING; Start at 19:30 Aspirin (Aspirin) 81 mg DAILY PO Last administered on 05/05/16 08:54; Admin Dose 81 MG; Start 05/05/16 at 09:00 Nitroglycerin (Nitroglycerin (Sl Tab) 0.4 Mg) 1 tab Q5M PRN SL CHEST PAIN; Start 05/04/16 at 19:30 Acetaminophen (Tylenol Tab) 650 mg Q6H PRN PO PAIN LEVEL 1-3 OR FEVER; Start at 19:30 Acetaminophen (Tylenol Supp) 650 mg Q6H PRN [place] PAIN LEVEL 1-3 OR FEVER; Start 05/04/16 at 19:30 Docusate Sodium (Colace) 100 mg Q12H PRN PO CONSTIPATION; Start 05/04/16 at 19: 30 Bisacodyl (Dulcolax) 5 mg DAILY PRN PO CONSTIPATION; Start 05/04/16 at 19:30 Pantoprazole (Protonix Tab) 40 mg DAILY@06 PO Last administered on 05/05/16 05 :34; Admin Dose 40 MG; Start 05/05/16 at 06:00 Enoxaparin Sodium (Lovenox) 40 mg DAILY SC Last administered on 05/05/16 08:57 ; Admin Dose 40 MG; Start 05/05/16 at 09:00 Lisinopril (Zestril) 5 mg DAILY PO Last administered on 05/05/16 08:54; Admin Dose 5 MG; Start 05/05/16 at 09:00 Metoprolol Succinate (Toprol Xl) 25 mg DAILY PO Last administered on 05/05/16 08:55; Admin Dose 25 MG; Start 05/05/16 at 09:00 Insulin Glargine (Lantus) 10 unit DAILY@20 SC Last administered on 05/04/16 22 :28; Admin Dose 10 UNIT; Start 05/04/16 at 20:00 Miscellaneous Information 1 ea NOTE XX ; Start 05/04/16 at 20:00 Glucose (Glutose) 15 gm Q15M PRN PO DECREASED GLUCOSE; Start 05/04/16 at 20:00 Glucose (Glutose) 22.5 gm Q15M PRN PO DECREASED GLUCOSE; Start 05/04/16 at 20: 00 Dextrose (D50w Syringe) 25 ml Q15M PRN IV DECREASED GLUCOSE; Start 05/04/16 at 20:00 Dextrose (D50w Syringe) 50 ml Q15M PRN IV DECREASED GLUCOSE; Start 05/04/16 at 20:00 Glucagon (Glucagen) 1 mg Q15M PRN IM DECREASED GLUCOSE; Start 05/04/16 at 20:00 Glucose (Glutose) 15 gm Q15M PRN BUCCAL DECREASED GLUCOSE; Start 05/04/16 at 20 :00 RAMONA PRETTY MD May 05, 2016 11:48
[2016-05-05 18:09] LABS: THYROID STIMULATING HORMONE 2.04 MIU/L (0.465-4.680)
[2016-05-05] MEDS: INSULIN GLARGINE [LANtus] 3 ML PEN SC SCH (21:35)
[2016-05-05] MEDS: ATORVASTATIN 20 MG TAB PO SCH (21:43)
--- NOTE | 2016-05-05 23:07 | RADRPT ---
Echocardiogram Report Patient Name: PROSPER CONTI Gender: Male Date: 1950 Study Date: 05-May-2016 Student Activities Director: Isabel Lundberg [facility] Location: [id number] Ref. Physician: ROXY JEFF Quality: Technically Difficult Study Procedures: Transthoracic echocardiogram with complete 2D, M-Mode, and doppler examination. Indications: Cerebrovascular Accident. 2D/M Mode Doppler Measurement Value Normal Ranges Measurement Value Normal Ranges LVIDd 2D 4.7 3.5 - 5.6 cm AV Peak Da 1.1 m/sec LVIDs 2D 3.0 2.1 - 4.1 cm AV Peak PG 5.0 mmHg FS 2D 37.3 % LVOT Peak Da 0.8 m/sec LVPWd 2D 1.0 0.6 - 1.1 cm LVOT Peak PG 3.0 mmHg IVSd 2D 1.1 0.6 - 1.1 cm MV E Peak Da 0.7 m/sec IVS/LVPW 2D 1.0 MV A Peak Da 1.0 m/sec AoR Diam 2D 2.7 2.0 - 3.7 cm MV E/A 0.7 LA/Ao 2D 1 0 - 1 MV Decel Time 120 msec EDV 2D 105.0 cm3 MV E/A 0.7 ESV 2D 25.9 cm3 LA Dimen 2D 3.5 2.3 - 4.0 cm Findings Left Ventricle: Normal left ventricular systolic function. Normal left ventricular cavity size. Mild concentric left ventricular hypertrophy. Ejection fraction is visually estimated at 55 %. Tissue Doppler/Mitral Doppler indices are consistent with impaired relaxation (Stage I diastolic dysfunction). Right Ventricle: Normal right ventricular size. Normal right ventricular systolic function. Left Atrium: The left atrium is normal in size. Right Atrium: The right atrium is normal in size. Mitral Valve: Normal appearance of the mitral valve. Mild mitral annular calcification. Trace mitral regurgitation. Aortic Valve: No significant aortic stenosis or insufficiency. Aortic cusps appear mildly calcified. Tricuspid Valve: Normal appearance of the tricuspid valve. Unable to obtain RVSP due to minimal presence of tricuspid regurgitation. Pulmonic Valve: Normal pulmonic valve appearance. Pericardium: Normal pericardium with no significant pericardial effusion. Aorta: Normal aortic root. IVC: Normal size and normal respiratory collapse consistent with normal right atrial pressure. Conclusions 1.Normal left ventricular systolic function. Normal left ventricular cavity size. Mild concentric left ventricular hypertrophy. Ejection fraction is visually estimated at 55 %. Tissue Doppler/Mitral Doppler indices are consistent with impaired relaxation (Stage I diastolic dysfunction). 2.Normal appearance of the mitral valve. Mild mitral annular calcification. Trace mitral regurgitation. 3.Normal appearance of the tricuspid valve. Unable to obtain RVSP due to minimal presence of tricuspid regurgitation. Electronically Signed By: Andreas Mata 05-May-2016 23:07:15 -0800 Patient Name: PROSPER CONTI Study Date: 05-May-2016 [id number]
[2016-05-06] VITALS (13 sets, daily range): BP systolic 146–184; BP diastolic 68–84; PULSE 71–79; RESP 18–20
[2016-05-06] MEDS: PANTOPRAZOLE (EC) 40 MG TAB PO SCH (05:07)
[2016-05-06] MEDS: ASPIRIN 81 MG TAB PO SCH (08:53)
[2016-05-06] MEDS: LISINOPRIL 5 MG TAB PO SCH (08:53)
[2016-05-06] MEDS: METOPROLOL (XL) 25 MG TAB PO SCH (08:54)
[2016-05-06] MEDS: INSULIN ASPART [NOVOLOG] 3 ML PEN SC SCH ×4 (08:56→22:35)
[2016-05-06] MEDS: ENOXAPARIN 40 MG/0.4 ML SYG SC SCH (08:58)
--- NOTE | 2016-05-06 09:57 | CONS ---
Date/Time of Note Date/Time of Note DATE: 05/06/16 TIME: 09:54 Consult Date/Type/Reason Admit Date/Time May 04, 2016 at 19:21 Initial Consult Date 05/05/16 Type of Consultation: Neurology Reason for Consultation No acute events Ordering Provider: ROXY JEFF MD Objective Vital Signs Date Time Temp Pulse Resp B/P Pulse Ox O2 Delivery O2 Flow Rate FiO2 05/06/16 08:59 76 172/76 05/06/16 08:34 98.2 20 98 05/05/16 04:00 Room Air Intake and Output 05/05/16 05/05/16 05/06/16 15:00 23:00 07:00 Intake Total 1200 ml 400 ml Balance 1200 ml 400 ml Results/Medications Result Diagram: 05/05/1659 05/05/16 0959 Results 24 hrs Laboratory Tests Test 05/05/16 09:59 05/05/16 11:49 05/05/16 16:41 05/05/16 20:10 Anion Gap 17 H Basophils # 0.0 Basophils % 0.3 Blood Urea Nitrogen 11 Calcium Level 8.8 Carbon Dioxide Level 26 Chloride Level 104 Cholesterol Level 144 Cholesterol/HDL Ratio 5.1 Creatinine 0.63 Eosinophils # 0.2 Eosinophils % 1.4 Glucose Level 240 H HDL Cholesterol 28 L Hematocrit 42.6 Hemoglobin 13.9 L LDL Cholesterol, Calculated 95 Lymphocytes # 2.0 Lymphocytes % 16.5 Magnesium Level 1.9 Mean Corpuscular Hemoglobin 29.5 Mean Corpuscular Hemoglobin Concent 32.6 Mean Corpuscular Volume 90.4 Mean Platelet Volume 11.2 H Monocytes # 0.6 Monocytes % 4.7 Neutrophils # 9.5 H Neutrophils % 76.5 Nucleated Red Blood Cells # 0.0 Nucleated Red Blood Cells % 0.0 Platelet Count 310 Potassium Level 4.0 Red Blood Count 4.71 Red Cell Distribution Width 13.2 Sodium Level 143 Thyroid Stimulating Hormone (TSH) 2.040 Triglycerides Level 107 White Blood Count 12.4 H Bedside Glucose 204 235 H 199 Test 05/06/16 01:56 05/06/16 08:09 Bedside Glucose 200 162 Medications Current Medications Ondansetron HCl (Zofran Tab) 4 mg Q6H PRN PO NAUSEA AND/OR VOMITING; Start at 19:30 Aspirin (Aspirin) 81 mg DAILY PO Last administered on 05/06/16 08:53; Admin Dose 81 MG; Start 05/05/16 at 09:00 Nitroglycerin (Nitroglycerin (Sl Tab) 0.4 Mg) 1 tab Q5M PRN SL CHEST PAIN; Start 05/04/16 at 19:30 Acetaminophen (Tylenol Tab) 650 mg Q6H PRN PO PAIN LEVEL 1-3 OR FEVER; Start at 19:30 Acetaminophen (Tylenol Supp) 650 mg Q6H PRN MT PAIN LEVEL 1-3 OR FEVER; Start 05/04/16 at 19:30 Docusate Sodium (Colace) 100 mg Q12H PRN PO CONSTIPATION; Start 05/04/16 at 19: 30 Bisacodyl (Dulcolax) 5 mg DAILY PRN PO CONSTIPATION; Start 05/04/16 at 19:30 Pantoprazole (Protonix Tab) 40 mg DAILY@06 PO Last administered on 05/06/16 05 :07; Admin Dose 40 MG; Start 05/05/16 at 06:00 Enoxaparin Sodium (Lovenox) 40 mg DAILY SC Last administered on 05/06/16 08:58 ; Admin Dose 40 MG; Start 05/05/16 at 09:00 Lisinopril (Zestril) 5 mg DAILY PO Last administered on 05/06/16 08:53; Admin Dose 5 MG; Start 05/05/16 at 09:00 Metoprolol Succinate (Toprol Xl) 25 mg DAILY PO Last administered on 05/06/16 08:54; Admin Dose 25 MG; Start 05/05/16 at 09:00 Miscellaneous Information 1 ea NOTE XX ; Start 05/04/16 at 20:00 Glucose (Glutose) 15 gm Q15M PRN PO DECREASED GLUCOSE; Start 05/04/16 at 20:00 Glucose (Glutose) 22.5 gm Q15M PRN PO DECREASED GLUCOSE; Start 05/04/16 at 20: 00 Dextrose (D50w Syringe) 25 ml Q15M PRN IV DECREASED GLUCOSE; Start 05/04/16 at 20:00 Dextrose (D50w Syringe) 50 ml Q15M PRN IV DECREASED GLUCOSE; Start 05/04/16 at 20:00 Glucagon (Glucagen) 1 mg Q15M PRN IM DECREASED GLUCOSE; Start 05/04/16 at 20:00 Glucose (Glutose) 15 gm Q15M PRN BUCCAL DECREASED GLUCOSE; Start 05/04/16 at 20 :00 Insulin Glargine (Lantus) 15 unit DAILY@20 SC Last administered on 05/05/16 21 :35; Admin Dose 15 UNIT; Start 05/05/16 at 20:00 Atorvastatin Calcium (Lipitor) 20 mg QHS PO Last administered on 05/05/16 21: 43; Admin Dose 20 MG; Start 05/05/16 at 21:00 Assessment/Plan Chief Complaint/Hosp Course EXAM: awake and alert oriented to self, hospital, date NAD, morbidly obese names and repeats following all commands well no aphasia no neglect CN: ELLE, VFF, blinks to threat appropriately, left UMN facial droop palate upgoing uvula midline scm/trap intact Motor: strength full in both arms and legs Sensation decreased in feet Coordination: no ataxia on FTN testing A/P: Acute ischemic CVA. MRI pending. Cont ASA, statin, keep normotensive, euglycemic, PT Problems: TRI DAVILA MD May 06, 2016 09:57
--- NOTE | 2016-05-06 11:51 | RADRPT ---
PROCEDURE: MR Brain without contrast. CLINICAL INDICATION: Left-sided weakness. CVA workup. TECHNIQUE: An MRI of the brain was performed on a 1.5 kae scanner utilizing the following sequen fritz: Sagittal T1 weighted, axial T2 weighted, axial FLAIR, coronal GRE, and axial diffusion weighted with ADC mapping. COMPARISON: CT brain 05/04/2016 FINDINGS: Restricted diffusion compatible with early subacute ischemic infarct in the posterior right basal ga nglia and negrete radiata measuring 10 mm in greatest dimension. Adjacent anterior signal loss involv ing the adjacent basal ganglia and anterior negrete radiata with a combined area proximally 2.5 x 2 c m greatest transaxial dimensions on gradient echo and T2-weighted sequences with subtle peripheral C 1 shortening consistent with hemorrhagic component and blood degradation products.. No associated edema, mass effect, or shift. No abnormal extra-axial fluid collection. Scattered periventricular and subcortical white matter T2 signal hyperintensity foci compatible with sequelae of chronic microvascular ischemic injury. Prominence of the ventricles and subarachnoid s paces compatible with mild age-related parenchymal volume loss. The posterior fossa contents, brainstem, seventh - eighth cranial nerve complexes, pituitary axis, o rbits, paranasal sinuses, and left mastoid air cells are unremarkable. Fluid signal in the right mas toid air cells compatible with retained secretions or inflammatory change. Normal flow voids are visible in the proximal intracranial arteries and dural sinuses, indicating pa tency. IMPRESSION: 1. Restricted diffusion with adjacent signal loss on gradient echo sequences in the right basal gang shira and negrete radiata compatible with early subacute ischemic infarction and hemorrhagic component as described in detail above. No edema, mass effect, or shift. This corresponds with CT findings . 2. Chronic microvascular ischemic changes in the deep white matter and mild age related or parenchym al volume loss. RPTAT:AAJJ Physician Kelley Date Time Electronically viewed and signed by Physician Kelley on 05/06/2016 11:50 LIZETTE/
--- NOTE | 2016-05-06 12:10 | RADRPT ---
PROCEDURE: MRA Brain. CLINICAL INDICATION: Left-sided weakness. Right basal ganglia and negrete radiata infarct. TECHNIQUE: An MRA of the brain was performed on a 1.5 kae scanner utilizing 3-D [id number] MR angiography technique. Source and MIP images were reviewed. COMPARISON: None FINDINGS: The internal carotid arteries are patent and normal in caliber. Irregularity and narrowing of the ri ght middle cerebral artery involving the distal 2/3 of the M1 segment with high-grade focal stenosis distally at the level of the bifurcation and origin of the M2 segment. Right basal ganglia and cor cony radiata infarct likely secondary to occlusion of lenticulostriate perforating vessel. The left middle cerebral and the anterior cerebral arteries are patent and normal in caliber with n o significant luminal irregularity or narrowing identified. Scattered areas of vascular irregularity throughout the anterior posterior circulation suggestive of atherosclerotic disease or vasculopathy. Intact anterior communicating artery with hypoplastic left posterior communicating artery. The orig in right posterior cerebral artery compatible with normal variant anatomy. The posterior cerebral arteries are patent and normal in caliber. The basilar artery is patent and n ormal in caliber. The vertebral arteries are patent, codominant, and normal in caliber. No evidence of intracranial aneurysm, vascular malformation, or arterial dissection. IMPRESSION: 1. Luminal irregularity and narrowing involving the distal 2/3 of the right M1 segment of the middle cerebral and high-grade short segment focal stenosis distally at the bifurcation and origin of the M2 segment. Distal right MCA branch vessels are patent. 2. Right basal ganglia and negrete radiata ischemic infarct likely secondary to occlusion of lenticu lostriate perforating vessel in the region of stenosis. 3. Scattered areas of vascular irregularity likely secondary to atherosclerotic disease or vasculop athy. 4. No intracranial aneurysm or vascular malformation. RPTAT:AAJJ Physician Kelley Date Time Electronically viewed and signed by Physician Kelley on 05/06/2016 12:09 LIZETTE/
--- NOTE | 2016-05-06 13:21 | PN ---
Date/Time of Note Date/Time of Note DATE: 05/06/16 TIME: 13:19 Assessment/Plan VTE Prophylaxis VTE Prophylaxis Intervention: LMWH Lines/Catheters IV Catheter Type (from [facility]): Peripheral IV Urinary Cath still in place: No Assessment/Plan Assessment/Plan 1. Acute on chronic cerebrovascular accident- MRI showed subacute R MCA infract - neurology following 2. Uncontrolled diabetes mellitus. Place the patient on insulin sliding scale , Lantus, low-carbohydrate diet. 3. Essential hypertension, mildly uncontrolled. Continue blood pressure medication. Will also place the patient on p.r.n. hydralazine. 4. Noncompliance with medication. Education was provided. 5. Left lower extremity edema with no sonographic evidence of deep venous thrombosis. This is likely secondary to chronic diabetic neuropathy and infection. Will start the patient on Levaquin. 6. Morbid obesity. Diet has been recommended. The patient will be recommended to be placed on low-calorie diet. 7. For deep venous thrombosis prophylaxis, on Lovenox. 8. For gastrointestinal prophylaxis, on proton pump inhibitor. 9. Continue to monitor patient closely. Further recommendations, management and treatment as per clinical course. Total amount of time spent for evaluation of patient and admission workup was 40 minutes. Subjective 24 Hr Interval Summary Free Text/Dictation MRI showed right MCA ischemic subscute CVA, s/p neurology consult Exam/Review of Systems Vital Signs Vitals Vital Signs Date Time Temp Pulse Resp B/P Pulse Ox O2 Delivery O2 Flow Rate FiO2 05/06/16 12:20 74 05/06/16 12:16 97.9 20 149/74 98 05/05/16 04:00 Room Air Intake and Output 05/05/16 05/05/16 05/06/16 15:00 23:00 07:00 Intake Total 1200 ml 400 ml Balance 1200 ml 400 ml Exam GENERAL APPEARANCE: no acute distress . RESPIRATORY: Effort is normal. Clear to auscultate bilaterally. CARDIOVASCULAR: Normal S1, S2. RRR, no murmur CHEST: Normal expansion during inspiration. ABDOMEN: Soft, nontender, not distended. Bowel sounds are present. No guarding, no rebound. GENITOURINARY: Deferred. MUSCULOSKELETAL: Upper extremities within normal limits. Lower extremities, there is significant difference between edema, swelling between right and left lower extremities. The left extremity, there is evidence of cellulitis with stasis dermatitis from ankle down and nonpitting edema in left lower extremity _ ___. NEUROLOGIC: There is evidence of facial droop on the right side. Cranial nerves 2 to 12 seem grossly intact. Results Result Diagram: 05/05/1659 05/05/16 0959 Results 24 hrs Laboratory Tests Test 05/05/16 16:41 05/05/16 20:10 05/06/16 01:56 05/06/16 08:09 Bedside Glucose 235 H 199 200 162 Test 05/06/16 11:49 Bedside Glucose 194 Medications Medications Current Medications Ondansetron HCl (Zofran Tab) 4 mg Q6H PRN PO NAUSEA AND/OR VOMITING; Start at 19:30 Aspirin (Aspirin) 81 mg DAILY PO Last administered on 05/06/16 08:53; Admin Dose 81 MG; Start 05/05/16 at 09:00 Nitroglycerin (Nitroglycerin (Sl Tab) 0.4 Mg) 1 tab Q5M PRN SL CHEST PAIN; Start 05/04/16 at 19:30 Acetaminophen (Tylenol Tab) 650 mg Q6H PRN PO PAIN LEVEL 1-3 OR FEVER; Start at 19:30 Acetaminophen (Tylenol Supp) 650 mg Q6H PRN [place] PAIN LEVEL 1-3 OR FEVER; Start 05/04/16 at 19:30 Docusate Sodium (Colace) 100 mg Q12H PRN PO CONSTIPATION; Start 05/04/16 at 19: 30 Bisacodyl (Dulcolax) 5 mg DAILY PRN PO CONSTIPATION; Start 05/04/16 at 19:30 Pantoprazole (Protonix Tab) 40 mg DAILY@06 PO Last administered on 05/06/16 05 :07; Admin Dose 40 MG; Start 05/05/16 at 06:00 Enoxaparin Sodium (Lovenox) 40 mg DAILY SC Last administered on 05/06/16 08:58 ; Admin Dose 40 MG; Start 05/05/16 at 09:00 Lisinopril (Zestril) 5 mg DAILY PO Last administered on 05/06/16 08:53; Admin Dose 5 MG; Start 05/05/16 at 09:00 Metoprolol Succinate (Toprol Xl) 25 mg DAILY PO Last administered on 05/06/16 08:54; Admin Dose 25 MG; Start 05/05/16 at 09:00 Miscellaneous Information 1 ea NOTE XX ; Start 05/04/16 at 20:00 Glucose (Glutose) 15 gm Q15M PRN PO DECREASED GLUCOSE; Start 05/04/16 at 20:00 Glucose (Glutose) 22.5 gm Q15M PRN PO DECREASED GLUCOSE; Start 05/04/16 at 20: 00 Dextrose (D50w Syringe) 25 ml Q15M PRN IV DECREASED GLUCOSE; Start 05/04/16 at 20:00 Dextrose (D50w Syringe) 50 ml Q15M PRN IV DECREASED GLUCOSE; Start 05/04/16 at 20:00 Glucagon (Glucagen) 1 mg Q15M PRN IM DECREASED GLUCOSE; Start 05/04/16 at 20:00 Glucose (Glutose) 15 gm Q15M PRN BUCCAL DECREASED GLUCOSE; Start 05/04/16 at 20 :00 Insulin Glargine (Lantus) 15 unit DAILY@20 SC Last administered on 05/05/16 21 :35; Admin Dose 15 UNIT; Start 05/05/16 at 20:00 Atorvastatin Calcium (Lipitor) 20 mg QHS PO Last administered on 05/05/16 21: 43; Admin Dose 20 MG; Start 05/05/16 at 21:00 JOO RAMIREZ MD May 06, 2016 13:20
[2016-05-06] MEDS: ATORVASTATIN 20 MG TAB PO SCH (22:06)
[2016-05-06] MEDS: INSULIN GLARGINE [LANtus] 3 ML PEN SC SCH (22:35)
[2016-05-07] VITALS (14 sets, daily range): BP systolic 145–195; BP diastolic 67–84; PULSE 75–82; RESP 16–20
[2016-05-07] MEDS: PANTOPRAZOLE (EC) 40 MG TAB PO SCH (05:24)
[2016-05-07] MEDS: ASPIRIN 81 MG TAB PO SCH (09:00)
[2016-05-07] MEDS: LISINOPRIL 5 MG TAB PO SCH (09:00)
[2016-05-07] MEDS: METOPROLOL (XL) 25 MG TAB PO SCH (09:00)
[2016-05-07] MEDS: INSULIN ASPART [NOVOLOG] 3 ML PEN SC SCH ×4 (09:02→20:59)
[2016-05-07] MEDS: ENOXAPARIN 40 MG/0.4 ML SYG SC SCH (09:03)
[2016-05-07] MEDS ORDERED: hydrALAzine 20 MG INJ IV PRN (12:30)
[2016-05-07] MEDS: NIFEdipine (XL) 30 MG TAB PO SCH (12:45)
--- NOTE | 2016-05-07 13:12 | PN ---
Date/Time of Note Date/Time of Note DATE: 05/07/16 TIME: 13:11 Assessment/Plan VTE Prophylaxis VTE Prophylaxis Intervention: LMWH Lines/Catheters IV Catheter Type (from [facility]): Saline Lock Urinary Cath still in place: No Assessment/Plan Assessment/Plan 1. Acute on chronic cerebrovascular accident- MRI showed subacute R MCA infract - neurology following 2. Uncontrolled diabetes mellitus. Place the patient on insulin sliding scale , Lantus, low-carbohydrate diet. 3. Essential hypertension, mildly uncontrolled. Continue blood pressure medication. Will also place the patient on p.r.n. hydralazine. 4. Noncompliance with medication. Education was provided. 5. Left lower extremity edema with no sonographic evidence of deep venous thrombosis. This is likely secondary to chronic diabetic neuropathy and infection. Will start the patient on Levaquin. 6. Morbid obesity. Diet has been recommended. The patient will be recommended to be placed on low-calorie diet. 7. For deep venous thrombosis prophylaxis, on Lovenox. 8. For gastrointestinal prophylaxis, on proton pump inhibitor. 9. Continue to monitor patient closely. Further recommendations, management and treatment as per clinical course. Total amount of time spent for evaluation of patient and admission workup was 40 minutes Subjective 24 Hr Interval Summary Free Text/Dictation no acute events Exam/Review of Systems Vital Signs Vitals Vital Signs Date Time Temp Pulse Resp B/P Pulse Ox O2 Delivery O2 Flow Rate FiO2 05/07/16 12:21 76 05/07/16 11:52 98.5 16 177/84 97 Room Air Intake and Output 05/06/16 05/06/16 05/07/16 15:00 23:00 07:00 Intake Total 900 ml 250 ml Balance 900 ml 250 ml Exam GENERAL APPEARANCE: no acute distress . RESPIRATORY: Effort is normal. Clear to auscultate bilaterally. CARDIOVASCULAR: Normal S1, S2. RRR, no murmur CHEST: Normal expansion during inspiration. ABDOMEN: Soft, nontender, not distended. Bowel sounds are present. No guarding, no rebound. MUSCULOSKELETAL: non focal Results Result Diagram: 05/05/16 0959 05/05/16 0959 Results 24 hrs Laboratory Tests Test 05/06/16 17:24 05/06/16 22:08 05/07/16 02:20 05/07/16 07:49 Bedside Glucose 140 255 H 186 173 Test 05/07/16 11:39 Bedside Glucose 210 Medications Medications Current Medications Ondansetron HCl (Zofran Tab) 4 mg Q6H PRN PO NAUSEA AND/OR VOMITING; Start at 19:30 Aspirin (Aspirin) 81 mg DAILY PO Last administered on 05/07/16 09:00; Admin Dose 81 MG; Start 05/05/16 at 09:00 Nitroglycerin (Nitroglycerin (Sl Tab) 0.4 Mg) 1 tab Q5M PRN SL CHEST PAIN; Start 05/04/16 at 19:30 Acetaminophen (Tylenol Tab) 650 mg Q6H PRN PO PAIN LEVEL 1-3 OR FEVER; Start at 19:30 Acetaminophen (Tylenol Supp) 650 mg Q6H PRN [place] PAIN LEVEL 1-3 OR FEVER; Start 05/04/16 at 19:30 Docusate Sodium (Colace) 100 mg Q12H PRN PO CONSTIPATION; Start 05/04/16 at 19: 30 Bisacodyl (Dulcolax) 5 mg DAILY PRN PO CONSTIPATION; Start 05/04/16 at 19:30 Pantoprazole (Protonix Tab) 40 mg DAILY@06 PO Last administered on 05/07/16 05 :24; Admin Dose 40 MG; Start 05/05/16 at 06:00 Enoxaparin Sodium (Lovenox) 40 mg DAILY SC Last administered on 05/07/16 09:03 ; Admin Dose 40 MG; Start 05/05/16 at 09:00 Lisinopril (Zestril) 5 mg DAILY PO Last administered on 05/07/16 09:00; Admin Dose 5 MG; Start 05/05/16 at 09:00 Metoprolol Succinate (Toprol Xl) 25 mg DAILY PO Last administered on 05/07/16 09:00; Admin Dose 25 MG; Start 05/05/16 at 09:00 Miscellaneous Information 1 ea NOTE XX ; Start 05/04/16 at 20:00 Glucose (Glutose) 15 gm Q15M PRN PO DECREASED GLUCOSE; Start 05/04/16 at 20:00 Glucose (Glutose) 22.5 gm Q15M PRN PO DECREASED GLUCOSE; Start 05/04/16 at 20: 00 Dextrose (D50w Syringe) 25 ml Q15M PRN IV DECREASED GLUCOSE; Start 05/04/16 at 20:00 Dextrose (D50w Syringe) 50 ml Q15M PRN IV DECREASED GLUCOSE; Start 05/04/16 at 20:00 Glucagon (Glucagen) 1 mg Q15M PRN IM DECREASED GLUCOSE; Start 05/04/16 at 20:00 Glucose (Glutose) 15 gm Q15M PRN BUCCAL DECREASED GLUCOSE; Start 05/04/16 at 20 :00 Insulin Glargine (Lantus) 15 unit DAILY@20 SC Last administered on 05/06/16 22 :35; Admin Dose 15 UNIT; Start 05/05/16 at 20:00 Atorvastatin Calcium (Lipitor) 20 mg QHS PO Last administered on 05/06/16 22: 06; Admin Dose 20 MG; Start 05/05/16 at 21:00 Nifedipine (Procardia Xl) 30 mg DAILY PO Last administered on 05/07/16 12:45; Admin Dose 30 MG; Start 05/07/16 at 12:30 Hydralazine HCl (Apresoline) 10 mg Q4H PRN IV ELEVATED BLOOD PRESSURE; Start at 12:30 JOO RAMIREZ MD May 07, 2016 13:12
[2016-05-07] MEDS: ATORVASTATIN 20 MG TAB PO SCH (20:58)
[2016-05-07] MEDS: INSULIN GLARGINE [LANtus] 3 ML PEN SC SCH (21:00)
[2016-05-08 02:00] VITALS: BP 125/59; PULSE 87; RESP 18
[2016-05-08] MEDS: PANTOPRAZOLE (EC) 40 MG TAB PO SCH (06:14)
[2016-05-08] MEDS: INSULIN ASPART [NOVOLOG] 3 ML PEN SC SCH ×4 (08:22→21:15)
[2016-05-08 08:56] VITALS: BP 139/64; RESP 20
[2016-05-08] MEDS: ASPIRIN 81 MG TAB PO SCH (09:21)
[2016-05-08] MEDS: NIFEdipine (XL) 30 MG TAB PO SCH (09:22)
[2016-05-08] MEDS: METOPROLOL (XL) 25 MG TAB PO SCH (09:22)
[2016-05-08] MEDS: LISINOPRIL 5 MG TAB PO SCH (09:23)
[2016-05-08] MEDS: ENOXAPARIN 40 MG/0.4 ML SYG SC SCH (09:24)
--- NOTE | 2016-05-08 12:24 | PN ---
Date/Time of Note Date/Time of Note DATE: 05/08/16 TIME: 12:23 Assessment/Plan VTE Prophylaxis VTE Prophylaxis Intervention: LMWH Lines/Catheters IV C[facility]ter Type (from [facility]): Saline Lock Urinary Cath still in place: No Assessment/Plan Assessment/Plan 1. Acute on chronic cerebrovascular accident- MRI showed subacute R MCA infract - neurology following 2. Uncontrolled diabetes mellitus. Place the patient on insulin sliding scale , Lantus, low-carbohydrate diet. 3. Essential hypertension, mildly uncontrolled. Continue blood pressure medication. Will also place the patient on p.r.n. hydralazine. 4. Noncompliance with medication. Education was provided. 5. Left lower extremity edema with no sonographic evidence of deep venous thrombosis. This is likely secondary to chronic diabetic neuropathy and infection. Will start the patient on Levaquin. 6. Morbid obesity. Diet has been recommended. The patient will be recommended to be placed on low-calorie diet. 7. For deep venous thrombosis prophylaxis, on Lovenox. 8. For gastrointestinal prophylaxis, on proton pump inhibitor. 9. Continue to monitor patient closely. Further recommendations, management and treatment as per clinical course. Total amount of time spent for evaluation of patient and admission workup was 40 minutes Exam/Review of Systems Vital Signs Vitals Vital Signs Date Time Temp Pulse Resp B/P Pulse Ox O2 Delivery O2 Flow Rate FiO2 05/08/16 08:56 98.2 84 20 139/64 92 05/08/16 02:00 Room Air Intake and Output 05/07/16 05/07/16 05/08/16 15:00 23:00 07:00 Intake Total 770 ml 360 ml Balance 770 ml 360 ml Exam GENERAL APPEARANCE: no acute distress . RESPIRATORY: Effort is normal. Clear to auscultate bilaterally. CARDIOVASCULAR: Normal S1, S2. RRR, no murmur CHEST: Normal expansion during inspiration. ABDOMEN: Soft, nontender, not distended. Bowel sounds are present. No guarding, no rebound. MUSCULOSKELETAL: non focal Results Result Diagram: 05/05/16 0959 05/05/16 0959 Results 24 hrs Laboratory Tests Test 05/07/16 17:12 05/07/16 20:57 05/08/16 02:41 05/08/16 07:59 Bedside Glucose 173 242 H 155 161 Test 05/08/16 11:25 Bedside Glucose 226 H Medications Medications Current Medications Ondansetron HCl (Zofran Tab) 4 mg Q6H PRN PO NAUSEA AND/OR VOMITING; Start at 19:30 Aspirin (Aspirin) 81 mg DAILY PO Last administered on 05/08/16 09:21; Admin Dose 81 MG; Start 05/05/16 at 09:00 Nitroglycerin (Nitroglycerin (Sl Tab) 0.4 Mg) 1 tab Q5M PRN SL CHEST PAIN; Start 05/04/16 at 19:30 Acetaminophen (Tylenol Tab) 650 mg Q6H PRN PO PAIN LEVEL 1-3 OR FEVER; Start at 19:30 Acetaminophen (Tylenol Supp) 650 mg Q6H PRN [place] PAIN LEVEL 1-3 OR FEVER; Start 05/04/16 at 19:30 Docusate Sodium (Colace) 100 mg Q12H PRN PO CONSTIPATION; Start 05/04/16 at 19: 30 Bisacodyl (Dulcolax) 5 mg DAILY PRN PO CONSTIPATION; Start 05/04/16 at 19:30 Pantoprazole (Protonix Tab) 40 mg DAILY@06 PO Last administered on 05/08/16 06 :14; Admin Dose 40 MG; Start 05/05/16 at 06:00 Enoxaparin Sodium (Lovenox) 40 mg DAILY SC Last administered on 05/08/16 09:24 ; Admin Dose 40 MG; Start 05/05/16 at 09:00 Lisinopril (Zestril) 5 mg DAILY PO Last administered on 05/08/16 09:23; Admin Dose 5 MG; Start 05/05/16 at 09:00 Metoprolol Succinate (Toprol Xl) 25 mg DAILY PO Last administered on 05/08/16 09:22; Admin Dose 25 MG; Start 05/05/16 at 09:00 Miscellaneous Information 1 ea NOTE XX ; Start 05/04/16 at 20:00 Glucose (Glutose) 15 gm Q15M PRN PO DECREASED GLUCOSE; Start 05/04/16 at 20:00 Glucose (Glutose) 22.5 gm Q15M PRN PO DECREASED GLUCOSE; Start 05/04/16 at 20: 00 Dextrose (D50w Syringe) 25 ml Q15M PRN IV DECREASED GLUCOSE; Start 05/04/16 at 20:00 Dextrose (D50w Syringe) 50 ml Q15M PRN IV DECREASED GLUCOSE; Start 05/04/16 at 20:00 Glucagon (Glucagen) 1 mg Q15M PRN IM DECREASED GLUCOSE; Start 05/04/16 at 20:00 Glucose (Glutose) 15 gm Q15M PRN BUCCAL DECREASED GLUCOSE; Start 05/04/16 at 20 :00 Insulin Glargine (Lantus) 15 unit DAILY@20 SC Last administered on 05/07/16 21 :00; Admin Dose 15 UNIT; Start 05/05/16 at 20:00 Atorvastatin Calcium (Lipitor) 20 mg QHS PO Last administered on 05/07/16 20: 58; Admin Dose 20 MG; Start 05/05/16 at 21:00 Nifedipine (Procardia Xl) 30 mg DAILY PO Last administered on 05/08/16 09:22; Admin Dose 30 MG; Start 05/07/16 at 12:30 Hydralazine HCl (Apresoline) 10 mg Q4H PRN IV ELEVATED BLOOD PRESSURE; Start at 12:30 Hydralazine HCl (Apresoline) 50 mg Q6H PRN PO SBP>150 mm Hg Last administered on 05/07/16 23:07; Admin Dose 50 MG; Start 05/07/16 at 13:30 JOO RAMIREZ MD May 08, 2016 12:24
--- NOTE | 2016-05-08 17:50 | CONS ---
Date/Time of Note Date/Time of Note DATE: 05/08/16 TIME: 17:48 Consult Date/Type/Reason Admit Date/Time May 04, 2016 at 19:21 Initial Consult Date 05/05/16 Type of Consultation: Neurology Ordering Provider: ROXY JEFF MD Subjective No complaints, no new problems. Objective Vital Signs Date Time Temp Pulse Resp B/P Pulse Ox O2 Delivery O2 Flow Rate FiO2 05/08/16 08:56 98.2 84 20 139/64 92 05/08/16 02:00 Room Air Intake and Output 05/07/16 05/07/16 05/08/16 15:00 23:00 07:00 Intake Total 770 ml 360 ml Balance 770 ml 360 ml Results/Medications Result Diagram: 05/05/1659 05/05/16 0959 Results 24 hrs Laboratory Tests Test 05/07/16 20:57 05/08/16 02:41 05/08/16 07:59 05/08/16 11:25 Bedside Glucose 242 H 155 161 226 H Test 05/08/16 16:52 Bedside Glucose 178 Medications Current Medications Ondansetron HCl (Zofran Tab) 4 mg Q6H PRN PO NAUSEA AND/OR VOMITING; Start at 19:30 Aspirin (Aspirin) 81 mg DAILY PO Last administered on 05/08/16 09:21; Admin Dose 81 MG; Start 05/05/16 at 09:00 Nitroglycerin (Nitroglycerin (Sl Tab) 0.4 Mg) 1 tab Q5M PRN SL CHEST PAIN; Start 05/04/16 at 19:30 Acetaminophen (Tylenol Tab) 650 mg Q6H PRN PO PAIN LEVEL 1-3 OR FEVER; Start at 19:30 Acetaminophen (Tylenol Supp) 650 mg Q6H PRN [place] PAIN LEVEL 1-3 OR FEVER; Start 05/04/16 at 19:30 Docusate Sodium (Colace) 100 mg Q12H PRN PO CONSTIPATION; Start 05/04/16 at 19: 30 Bisacodyl (Dulcolax) 5 mg DAILY PRN PO CONSTIPATION; Start 05/04/16 at 19:30 Pantoprazole (Protonix Tab) 40 mg DAILY@06 PO Last administered on 05/08/16 06 :14; Admin Dose 40 MG; Start 05/05/16 at 06:00 Enoxaparin Sodium (Lovenox) 40 mg DAILY SC Last administered on 05/08/16 09:24 ; Admin Dose 40 MG; Start 05/05/16 at 09:00 Lisinopril (Zestril) 5 mg DAILY PO Last administered on 05/08/16 09:23; Admin Dose 5 MG; Start 05/05/16 at 09:00 Metoprolol Succinate (Toprol Xl) 25 mg DAILY PO Last administered on 05/08/16 09:22; Admin Dose 25 MG; Start 05/05/16 at 09:00 Miscellaneous Information 1 ea NOTE XX ; Start 05/04/16 at 20:00 Glucose (Glutose) 15 gm Q15M PRN PO DECREASED GLUCOSE; Start 05/04/16 at 20:00 Glucose (Glutose) 22.5 gm Q15M PRN PO DECREASED GLUCOSE; Start 05/04/16 at 20: 00 Dextrose (D50w Syringe) 25 ml Q15M PRN IV DECREASED GLUCOSE; Start 05/04/16 at 20:00 Dextrose (D50w Syringe) 50 ml Q15M PRN IV DECREASED GLUCOSE; Start 05/04/16 at 20:00 Glucagon (Glucagen) 1 mg Q15M PRN IM DECREASED GLUCOSE; Start 05/04/16 at 20:00 Glucose (Glutose) 15 gm Q15M PRN BUCCAL DECREASED GLUCOSE; Start 05/04/16 at 20 :00 Insulin Glargine (Lantus) 15 unit DAILY@20 SC Last administered on 05/07/16 21 :00; Admin Dose 15 UNIT; Start 05/05/16 at 20:00 Atorvastatin Calcium (Lipitor) 20 mg QHS PO Last administered on 05/07/16 20: 58; Admin Dose 20 MG; Start 05/05/16 at 21:00 Nifedipine (Procardia Xl) 30 mg DAILY PO Last administered on 05/08/16 09:22; Admin Dose 30 MG; Start 05/07/16 at 12:30 Hydralazine HCl (Apresoline) 10 mg Q4H PRN IV ELEVATED BLOOD PRESSURE; Start at 12:30 Hydralazine HCl (Apresoline) 50 mg Q6H PRN PO SBP>150 mm Hg Last administered on 2/25/17at 23:07; Admin Dose 50 MG; Start 05/07/16 at 13:30 Assessment/Plan Chief Complaint/Hosp Course EXAM: awake and alert oriented to self, hospital, date NAD, morbidly obese names and repeats following all commands well no aphasia no neglect CN: ELLE, VFF, blinks to threat appropriately, left UMN facial droop palate upgoing uvula midline scm/trap intact Motor: strength full in both arms and legs Sensation decreased in feet Coordination: no ataxia on FTN testing A/P: Acute ischemic CVA. Cont ASA, statin, keep normotensive, euglycemic Further disposition per PT, if needed more - ?home PT Problems: TRI DAVILA MD May 08, 2016 17:50
[2016-05-08 20:00] VITALS: BP 129/68; RESP 20
[2016-05-08] MEDS: ATORVASTATIN 20 MG TAB PO SCH (21:11)
[2016-05-08] MEDS: INSULIN GLARGINE [LANtus] 3 ML PEN SC SCH (21:14)
[2016-05-09] MEDS: PANTOPRAZOLE (EC) 40 MG TAB PO SCH (05:21)
[2016-05-09 08:20] VITALS: BP 139/65; RESP 18
[2016-05-09] MEDS: ENOXAPARIN 40 MG/0.4 ML SYG SC SCH (08:22)
[2016-05-09] MEDS: INSULIN ASPART [NOVOLOG] 3 ML PEN SC SCH ×3 (08:23→17:17)
[2016-05-09] MEDS: NIFEdipine (XL) 30 MG TAB PO SCH (08:25)
[2016-05-09] MEDS: LISINOPRIL 5 MG TAB PO SCH (08:25)
[2016-05-09] MEDS: ASPIRIN 81 MG TAB PO SCH (08:26)
[2016-05-09] MEDS: METOPROLOL (XL) 25 MG TAB PO SCH (08:26)
[2016-05-09] MEDS ORDERED: INSU100C SQ (15:11)
[2016-05-09] MEDS ORDERED: LANT3I SC (15:11)
[2016-05-09] MEDS ORDERED: LISI10TA2 PO (15:11)
[2016-05-09] MEDS ORDERED: METO25TA7 PO (15:11)
[2016-05-09] MEDS ORDERED: ASPI-664 PO (15:11)
[2016-05-09] MEDS ORDERED: ATOR80TA75 PO (15:11)
--- NOTE | 2016-05-09 15:12 | PDOCDIS ---
Discharge Instructions CONDITION Patient Condition: Good HOME CARE INSTRUCTIONS: Special Diet: LOW CARB ACTIVITY: Activity Restrictions: Slowly Increase Activity FOLLOW UP/APPOINTMENTS Appointments F/U WITH YOUR PCP IN 1-2 WEEKS RAISSA OLSON May 09, 2016 15:12
--- NOTE | 2016-05-10 12:32 | DS ---
DATE OF ADMISSION: 05/04/2016 DATE OF DISCHARGE: 05/09/2016 DISCHARGE DIAGNOSES: 1. Acute cerebrovascular accident with MRI showing right MCA infarct. Patient cleared for discharg e to home with PT via home health. 2. Uncontrolled diabetes. Status post diabetes education evaluation. The patient has been noncomp liant with the medications. Patient has been advised the importance of compliance and insulin refil l. 3. Hypertension, stable with medications. 3. Noncompliance with medication, education provided. 4. Left lower extremity edema with no evidence of DVT. 5. Morbid obesity. Lifestyle changes have been advised. HOSPITAL COURSE: The patient is a 65-year-old male with a history of obesity, diabetes, hypertensio n, CVA, left lower extremity cellulitis. Patient had a CVA 3 months ago, did not follow up with any physician and he has been noncompliant with his diabetes medications. The patient presented with ri ght-sided facial droop. The patient had an MRI of the brain that showed a right basal ganglia and c fauzia radiata CVA. The patient had a brain MRA that showed a luminal irregularity narrowing involvi ng the distal 2/3 of the right and 1 segment of the middle cerebral high grade short segment focal s tenosis distally and the bifurcation segment and distal right MCA branches were patent. The p atient did have lower extremity swelling and had ultrasound of the lower extremity that showed no ev idence of DVT. Carotid Doppler study showed no significant stenosis of the right internal carotid a nd no significant stenosis of the left internal carotid. The patient was evaluated by PT and the pa tient was able to ambulate. The patient was felt to be safe for discharge to home with home health. The patient's A1c was severely elevated at 13.2 and he was seen by cage loader. He has been noncompliant with his diabetic medications. He was taught how to readminister insulin, he was usin g insulin in the past but was not using it properly. He also ran out of his insulin. On the day of discharge, the patient was felt to be stable, his vitals, labs and physical exam were stable. He bartholomew d no acute complaints. His neurological strength had improved. Once again his physical was stable. CONDITION ON DISCHARGE: Stable. DISPOSITION: To home with home health. MEDICATIONS: 1. The patient was given a prescription for Lipitor 80 mg at bedtime. 2. Lantus 15 units subcutaneous at bedtime. 3. NovoLog 5 units with meals. 4. Lisinopril 10 mg daily. 5. The patient was to continue his home aspirin and metoprolol. He will stop the lisinopril 5. The patient was given a prescription for insulin needles as well as t he Lantus test strips. FOLLOWUP: The patient is to follow up with his PCP in 1 to 2 weeks as well as with home health. Greater than 30 minutes was spent coordinating the discharge of patient. Dictated By: RAISSA OLSON MD BS/SALVATORE Conf#: [id number] DID#: [id number]
== END 2016-05-09 18:00 | disposition home health service (06) | DRG 66 ==
LOC: E/R 16:34 → MS4 19:21 → PP2 05-07 15:32
PROVIDERS: ADMIT Family Medicine; ATTEND Family Medicine
DX: I63.9 Cerebral infarction, unspecified (principal); E11.65 Type 2 diabetes mellitus with hyperglycemia; I10 Essential (primary) hypertension; I87.2 Venous insufficiency (chronic) (peripheral); R29.810 Facial weakness; R60.9 Edema, unspecified; E66.01 Morbid (severe) obesity due to excess calories; Z68.37 Body mass index [BMI] 37.0-37.9, adult; Z79.4 Long term (current) use of insulin; Z91.14 Patient's other noncompliance with medication regimen; Z86.73 Personal history of transient ischemic attack (TIA), and cerebral infarction without residual deficits
CPT/HCPCS: 36415; 70450; 70544; 70551; 71010; 80048; 80061; 80307; 81001; 81003; 82962; 83036; 83735; 84443; 84484; 85025; 85610; 85730; 92610; 93005; 93306; 93880; 93970; 97116; 97163; 97166; 97530; J1650; J1815; J7030

== ENCOUNTER 2017-02-19 17:57 | Inpatient (IN) | payer MEDICAID, OTHER ==
[~2017-02-19] VITALS: Ht 167.6 cm; Wt 105.7 kg
[~2017-02-19 17:57] MED LIST changes: +ASPI-664 PO; +ATOR80TA75 PO; -BACTDS PO; -CEPH-443 PO; -IBUP400T22 PO; +INSU100C SQ; +LANT3I SC; +LISI10TA2 PO; +METO-335 PO
[2017-02-19] MEDS ORDERED: CEFEPIME 2GM/50 ML (PMX) 50 ML IVPB STA (18:05)
[2017-02-19] MEDS ORDERED: SODIUM CHLORIDE 0.9% 1L BAG IV* STA (18:05)
[2017-02-19] MEDS ORDERED: ACETAMINOPHEN 500 MG TAB PO STA (18:05)
[2017-02-19] MEDS ORDERED: VANCOMYCIN 1 GM (PMX) 250 ML IVPB ONE (18:30)
[2017-02-19 18:51] LABS: ABNORMAL IP MESSAGE 1; BASOPHIL # 0.1 10^3/ul (0.0-0.1); BASOPHILS % 0.3 % (0.0-2.0); EOSINOPHILS % 0.1 % (0.0-7.0); HEMATOCRIT 41.9 % (42.0-52.0); LYMPHOCYTES # 0.3 10^3/ul (0.8-2.9); LYMPHOCYTES % 2.1 % (15.0-51.0); MEAN CORPUSCULAR HEMOGLOBIN 29.4 pg (29.0-33.0); MEAN CORPUSCULAR HGB CONC 33.4 g/dl (32.0-37.0); MEAN PLATELET VOLUME 11.2 fl (7.4-10.4); MONOCYTE # 1.1 10^3/ul (0.3-0.9); NEUTROPHIL # 14.4 10^3/ul (1.6-7.5); NEUTROPHILS % 89.8 % (39.0-77.0); PLATELET COUNT 255 10^3/UL (140-415); POSITIVE DIFF @See below; RED BLOOD COUNT 4.76 10^6/ul (4.70-6.10); RED CELL DISTRIBUTION WIDTH 13.6 % (11.5-14.5)
--- NOTE | 2017-02-19 19:00 | ERD ---
ER Documentation Chief Complaint Chief Complaint BIB RA 39 FOR EVAL OF GENERALIZED WEAKNESS HPI This is a 66-year-old gentleman who states that he has felt generally weak for approximately 24-48 hours. He has no other complaints but is found to have a temperature. The patient denies any fevers at home, no nausea vomiting chest pain or shortness of breath. He denies of any abdominal pain or swelling. No pleuritic pain. The patient's glucose was also noted to be elevated. The patient verbalizes compliance with medication regimen. No recent travel sick contacts or antibiotics. ROS All systems reviewed and are negative except as per history of present illness. Medications Home Meds Active Scripts Atorvastatin* (Atorvastatin*) 80 Mg Tablet, 80 MG PO QHS, #60 TAB 1 Refill Prov:RAISSA OLSON 05/09/16 Insulin Lispro (Humalog) 100 Unit/1 Ml Cartridge, 5 UNIT SQ WITH MEALS, #1 VIAL Prov:RAISSA OLSON 05/09/16 Insulin Glargine* (Lantus*) 100 Unit/Ml Soln, 15 UNIT SC QHS, #1 VIAL Prov:WESLEYRAISSA NICOLE 05/09/16 Lisinopril* (Lisinopril*) 10 Mg Tablet, 10 MG PO DAILY, #60 TAB 1 Refill Prov:RAISSA OLSON 05/09/16 Metoprolol Succinate* (Toprol XL*) 25 Mg Tab.sr.24h, 25 MG PO DAILY, #60 TAB 1 Refill Prov:WESLEYRAISSA NICOLE 05/09/16 Aspirin* (Aspirin* EC) 81 Mg Tablet.dr, 81 MG PO DAILY, #90 TAB 1 Refill Prov:WESLEYRAISSA 05/09/16 Allergies Allergies: Coded Allergies: No Known Allergy (Unverified , 05/04/16) PMhx/Soc History of Surgery: No Anesthesia Reaction: No Hx Neurological Disorder: No Hx Cardiac Disorders: Yes (hypertension) Hx Psychiatric Problems: No Hx Miscellaneous Medical Probl: Yes (HTN, DM2, LLE cellulitis, CVA, neuropathy , dyslipidemia) Hx Alcohol Use: No Hx Substance Use: No Hx Tobacco Use: No Smoking Status: Never smoker FmHx Family History: diabetes Physical Exam Vitals Vital Signs Date Time Temp Pulse Resp B/P Pulse Ox O2 Delivery O2 Flow Rate FiO2 02/19/17 19:41 99.0 118 20 179/77 95 Room Air 02/19/17 18:04 101.9 115 20 183/100 96 Physical Exam General: Well developed, well nourished, no acute distress, warm to touch Head: Normocephalic, atraumatic. Eyes: Pupils equally reactive, EOM intact ENT: Moist mucous membranes Neck: Supple, no lymphadenopathy Respiratory: Lungs clear bilaterally, no distress Cardiovascular: RRR, no murmurs, rubs, or gallops Abdominal: Protuberant, soft, non-tender, non-distended, no peritoneal signs : Deferred MSK: Bilateral lower extremities slight pitting edema, no unilateral swelling, 5 /5 strength Neurologic: Alert and oriented, moving all extremities, normal speech, no focal weakness, no cerebellar signs, no meningismus Skin: No rash Psych: Normal mood Result Diagram: 02/19/17 1825 02/19/171824 Results 24 hrs Laboratory Tests Test 02/19/17 18:05 02/19/17 18:25 Blood Gas Specimen Source Blood venous Arterial Blood Date Drawn 02/19/2017 7:40:54 PM Arterial Blood Gas Puncture Site VENOUS LINE Tani Test N/A Venous Blood pH 7.403 Venous Blood pCO2 (Temp Corrected) 39.1mmHG Venous Blood pO2 (Temp Corrected) 43.1mmHG Venous Blood HCO3 23.8mmol/L Venous Blood Oxygen Saturation 82.4mmHG Venous Blood Base Excess -0.7mmol/L Venous Blood Total Hemoglobin 15.1g/dl Venous Blood Oxyhemoglobin 81.7% Venous Blood Methemoglobin 0% Carboxyhemoglobin 0.9% Blood Gas Temperature 37.0C Blood Gas Modality ROOM AIR FiO2 21.0% Blood Gas Notified Whom BL Blood Gas Notified Time 02/19/2017 7:55:04 PM White Blood Count 16.010^3/ul Red Blood Count 4.7610^6/ul Hemoglobin 14.0g/dl Hematocrit 41.9% Mean Corpuscular Volume 88.0fl Mean Corpuscular Hemoglobin 29.4pg Mean Corpuscular Hemoglobin Concent 33.4g/dl Red Cell Distribution Width 13.6% Platelet Count 70476^3/UL Mean Platelet Volume 11.2fl Neutrophils % 89.8% Lymphocytes % 2.1% Monocytes % 7.0% Eosinophils % 0.1% Basophils % 0.3% Nucleated Red Blood Cells % 0.0/100WBC Neutrophils # 14.410^3/ul Lymphocytes # 0.310^3/ul Monocytes # 1.110^3/ul Eosinophils # 0.010^3/ul Basophils # 0.110^3/ul Nucleated Red Blood Cells # 0.010^3/ul Prothrombin Time 14.2Sec Prothrombin Time Ratio 1.1 INR International Normalized Ratio 1.09 Activated Partial Thromboplast Time 32.6Sec Sodium Level 136mmol/L Potassium Level 3.9mmol/L Chloride Level 99mmol/L Carbon Dioxide Level 26mmol/L Anion Gap 15 Blood Urea Nitrogen 12mg/dl Creatinine 0.85mg/dl Glucose Level 332mg/dl Lactic Acid Level 2.2mmol/L Calcium Level 8.8mg/dl Phosphorus Level 2.3mg/dl Magnesium Level 1.5mg/dl Total Bilirubin 0.3mg/dl Direct Bilirubin 0.00mg/dl Indirect Bilirubin 0.3mg/dl Aspartate Amino Transf (AST/SGOT) 25IU/L Alanine Aminotransferase (ALT/SGPT) 39IU/L Alkaline Phosphatase 125IU/L Troponin I < 0.012ng/ml Total Protein 7.1g/dl Albumin 3.7g/dl Globulin 3.40g/dl Albumin/Globulin Ratio 1.08 Current Medications Medications (Trade) Dose Ordered Sig/[place] Route PRN Reason Start Time Stop Time Status Last Admin Dose Admin Sodium Chloride 3300 ml 3,300 ml BOLUS OVER 2 HOURS STAT IV* 02/19/17 18:05 02/19/17 18:08 DC 02/19/17 18:50 Cefepime HCl 50 ml @ 100 mls/hr ONCE STAT IVPB 02/19/17 18:05 02/19/17 18:34 DC Vancomycin HCl (Vancocin) 250 ml @ 125 mls/hr ONCE ONCE IVPB 02/19/17 18:30 02/19/17 20:29 Acetaminophen (Tylenol Tab) 1,000 mg ONCE STAT PO 02/19/17 18:05 02/19/17 18:08 DC 02/19/17 18:50 Ondansetron HCl (Zofran Inj) 4 mg BRIDGE ORDER PRN IV NAUSEA AND/OR VOMITING 02/19/17 20:00 02/20/17 19:59 Acetaminophen (Tylenol Tab) 650 mg ER BRIDGE PRN PO MILD PAIN/FEVER 02/19/17 20:00 02/20/17 19:59 Procedures/MDM EKG, MONITORS, & DIAGNOSTIC IMAGING: EKG: I reviewed and interpreted a 12-lead EKG. Rhythm: Sinus tachycardia Ectopy: None Intervals: No abnormalities ST segments: No elevations or depressions T waves: No contiguous inversions Chest x-ray: I reviewed and interpreted a 1 view of the chest Mediastinum: No enlargement Cardiac silhouette: No cardiomegaly Airspace: Atelectasis at the left lung base Bones: No evidence of fracture LAB INTERPRETATION: Leukocytosis is noted with elevated lactic acid, hyperglycemia without DKA MEDICAL DECISION MAKING: this patient presents with generalized weakness, fever, tachycardia, hyperglycemia. His clinical presentation is concerning for viral syndrome versus sepsis Versus urinary tract infection. The patient has a benign abdominal exam without signs of acute intra-abdominal process. 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 The patient will benefit from fluid resuscitation, DKA screening, sepsis screening. I believe empiric antibiotics may be reasonable. The patient seems to have urinary incontinence, consider urinary tract infection. Low threshold for inpatient hospitalization. Influenza screening initiated. ER COURSE: The patient was given a 30 cc/kg bolus of saline. Antipyretics. Antibiotics empirically. The patient has evidence of urinary tract infection based on visual inspection. Potential pneumonia. Appropriate antibiotics provided. The patient was given antipyretics. He remains hemodynamically stable and does not require central line or intubation. Inpatient hospitalization appropriate for treatment of severe sepsis. I kept the patient and/or family informed of laboratory and diagnostic imaging results throughout the emergency room course. DISPOSITION PLAN: Medical surgical admission CONSULTATION: Accepting care team and consultations: I discussed the current laboratory data, diagnostic imaging and emergency care provided. Admitting team: Dr. Lucio Admitting team indication: Insurance directed, [place] Sepsis Documentation: Patient's infectious symptoms have not stabilized and the patient is at risk of rapid decompensation. The patient will be admitted for careful hydration, antibiotic therapy, and infectious source control. SEVERE SEPSIS CRITERIA: Infectious source: Urinary tract infection versus pneumonia End organ damage indicated by: [Lactate > 2.0 mmol/L SEPSIS MANAGEMENT Time of recognition of severe sepsis/septic shock: Upon arrival 3 HOUR BUNDLE Blood cultures x 2 before broad-spectrum antibiotics: Yes 30 ml/kg NS bolus pending completion Initial lactate 2.2 Repeat lactate pending SEPTIC SHOCK ASSESSMENT: No lactic acid > 4.0 No persistent hypotension (SBP < 90 or 40 mmHg drop, MAP < 65) despite 30 mL/kg IV fluid bolus VOLUME REASSESSMENT FOR SEPTIC SHOCK: Reevaluation Time: 8 PM Temperature of 99.0 heart rate 118 respiratory rate 20 blood pressure 179/77, pulse ox 95 Heart tachycardia Lungs No crackles Skin Warm & dry Cap Refill Less than 2 seconds Peripheral pulses Radially present PERSISTENT HYPOTENSION TREATMENT: Comfort care No Central line Not Required Vasopressor started Not required I considered further perfusion assessment with CVP measurement, SCVO2, bedside ultrasound volume assessment, passive leg raise, trial of further fluid bolus. And proceeded with 30 ml/kg fluid bolus of NSS, broad spectrum antbiotics, and admission. CRITICAL CARE Critical care time 35 minutes Emergent fluid management while maintaining close respiratory support. Provision of immediate and broad-spectrum antibiotic therapy. Simultaneous assessment for possible sources in order to direct targeted therapy. Consideration for invasive and chemical support to prevent cardiopulmonary collapse. Critical care time is independent of procedures performed. Departure Diagnosis: Primary Impression: Severe sepsis Additional Impressions: Urinary tract infection Urinary tract infection type: acute cystitis Hematuria presence: without hematuria Qualified Code: N30.00 - Acute cystitis without hematuria Pneumonia Pneumonia type: due to unspecified organism Laterality: left Lung location : lower lobe of lung Qualified Code: J18.1 - Pneumonia of left lower lobe due to infectious organism Hyperglycemia Condition: Stable LUCIUS REID MD Feb 19, 2017 19:00
[2017-02-19 19:12] LABS: INR 1.09; PROTIME 14.2 Sec (11.9-14.9); PT RATIO 1.1
[2017-02-19 19:13] LABS: PARTIAL THROMBOPLASTIN TIME 32.6 Sec (25.0-35.0)
[2017-02-19 19:15] LABS: ALANINE AMINOTRANSFERASE 39 IU/L (13-69); ALBUMIN 3.7 g/dl (3.3-4.9); ALBUMIN/GLOBULIN RATIO 1.08; ALKALINE PHOSPHATASE 125 IU/L (42-121); ANION GAP 15 (8-16); ASPARTATE AMINO TRANSFERASE 25 IU/L (15-46); BILIRUBIN,INDIRECT 0.3 mg/dl (0-1.1); BILIRUBIN,TOTAL 0.3 mg/dl (0.2-1.3); BLOOD UREA NITROGEN 12 mg/dl (7-20); CALCIUM 8.8 mg/dl (8.4-10.2); CARBON DIOXIDE 26 mmol/L (21-31); CHLORIDE 99 mmol/L (97-110); CREATININE 0.85 mg/dl (0.61-1.24); GLUCOSE 332 mg/dl (70-220); MAGNESIUM 1.5 mg/dl (1.7-2.5); PHOSPHORUS 2.3 mg/dl (2.5-4.9); POTASSIUM 3.9 mmol/L (3.5-5.1); SODIUM 136 mmol/L (135-144); TOTAL PROTEIN 7.1 g/dl (6.1-8.1)
--- NOTE | 2017-02-19 19:16 | RADRPT ---
PROCEDURE: XR Chest. CLINICAL INDICATION: Infection, possible sepsis. TECHNIQUE: AP Portable chest. COMPARISON: None FINDINGS: The cardiomediastinal silhouette is normal. The lung volumes are diminished with minimal right lowe r lobe atelectasis. There is a patchy infiltrate versus atelectasis in the left lower lobe. No pleur al effusions are seen. Atherosclerotic calcifications of the thoracic aorta are identified. There i s a chronic-appearing fracture of the posterior left seventh rib. Degenerative enthesopathy of the t horacic spine is evident. IMPRESSION: 1. Patchy infiltrate versus atelectasis at the left lung base. 2. Minimal atelectasis at the right lung base. 3. Mild atherosclerotic calcifications of the thoracic aorta. RPTAT: HJ[facility] .Cristela Beckett MD, Date Time Electronically viewed and signed by .Cristela Beckett MD, on 02/19/2017 19:15 .H/
[2017-02-19 19:36] LABS: TROPONIN-I < 0.012 ng/ml (0.00-0.12)
[2017-02-19 19:41] VITALS: TEMP 99
[2017-02-19 19:55] LABS: MODE ROOM AIR; MetHgb Venous 0 %; Sample Type Blood venous; Venous COHb 0.9 %; Venous Fraction OxyHgb 81.7 %; Venous Total Hemglobin 15.1 g/dl
[2017-02-19] MEDS ORDERED: ACETAMINOPHEN 325 MG TAB PO PRN ×2 (20:00→21:00)
[2017-02-19] MEDS ORDERED: ONDANSETRON 4 MG INJ IV PRN ×2 (20:00→21:00)
[2017-02-19 20:22] LABS: ADD UMIC YES; UR ASCORBIC ACID NEGATIVE (NEGATIVE); UR BACTERIA FEW /HPF (NONE SEEN); UR BILIRUBIN (Dip) NEGATIVE (NEGATIVE); UR BLOOD (Dip) 1+ mg/dL (NEGATIVE); UR CLARITY CLEAR (CLEAR); UR COLOR YELLOW (YELLOW); UR GLUCOSE (Dip) 3+ mg/dL (NEGATIVE); UR KETONES (Dip) 1+ mg/dL (NEGATIVE); UR LEUKOCYTE ESTERASE (Dip) NEGATIVE Leu/ul (NEGATIVE); UR NITRITE (Dip) NEGATIVE (NEGATIVE); UR RBC 5 /HPF (0-5); UR SPECIFIC GRAVITY (Dip) 1.021 (1.003-1.030); UR TOTAL PROTEIN (Dip) 2+ mg/dl (NEGATIVE); UR UROBILINOGEN (Dip) NEGATIVE (NEGATIVE)
[2017-02-19] MEDS ORDERED: DOCUSATE SODIUM 100 MG CAP PO PRN (21:00)
[2017-02-19] MEDS ORDERED: HYDROCODONE/APAP (5/325) TAB PO PRN (21:00)
[2017-02-19] MEDS ORDERED: morphine 2 MG INJ IV PRN (21:00)
[2017-02-19] MEDS ORDERED: ZOLPIDEM 5 MG TAB PO PRN (21:00)
[2017-02-19] MEDS ORDERED: LISINOPRIL 10 MG TAB PO SCH (21:00)
[2017-02-19] MEDS ORDERED: MAGNESIUM SULFATE 2 GM/50 ML 50 ML IVPB ONE (21:00)
[2017-02-19] MEDS ORDERED: NACL 0.9% 3 ML SYG IV SCH (21:00)
[2017-02-19] MEDS ORDERED: MAGNESIUM HYDROXIDE 30ML CUP PO PRN (21:00)
[2017-02-19] MEDS ORDERED: INSULIN GLARGINE [LANtus] 3 ML PEN SC SCH (21:00)
--- NOTE | 2017-02-19 21:18 | HP ---
Date/Time of Note Date/Time of Note DATE: 02/19/17 TIME: 21:08 Assessment/Plan VTE Prophylaxis VTE Prophylaxis Intervention: ambulation, anti-embolic stocking, LMWH Lines/Catheters IV Catheter Type (from [facility]): Peripheral IV Central line still needed: No Urinary Cath still in place: No Assessment/Plan Problems: (1) Severe sepsis Status: Acute Comment: Sepsis work up done per septic protocol. Blood culture,urine culture done 3lit NS bolus given and then NS at 100 mm/hr repeated lactic acid. (2) Pneumonia Status: Acute Comment: Zosyn ,Levaquin and Vancomycin given Duoneb as need for short of breath HOB elevated Aspiration precaution Qualifiers: Pneumonia type: due to unspecified organism Laterality: bilateral Lung location: lower lobe of lung Qualified Code: J18.9 - Pneumonia of both lower lobes due to infectious organism (3) Diabetes mellitus type 2 in obese Status: Chronic Comment: Insulin sliding scale and Lantus given (4) Hyperglycemia due to type 2 diabetes mellitus Status: Acute Comment: Lantus and resistant Insulin sliding scale diabetic education Diabetic diet Qualifiers: 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 He was transferred from home due to syncopal episode. His family stated that last time he was here ,his blood sugar was very high. According to last H&P from neurologist, he has not been compliant with his Lantus. According to him, he has been lazy and has not gone to get his medication. He is a very poor historian, and he states that he sometimes takes some of his medication if he remembers to take them. Today upon arrival to emergency room, his temperature was 103, pulse 118, respirations 20, blood pressure 176/81, oxygen saturation 99%. He denies having any chest pain, shortness of breath, nausea, vomiting, diarrhea. He felt dizzy at home and also had lightheadedness. No change in visual acuity, diplopia, photophobia. No right-sided facial droop and left lower extremity weakness. No abdominal pain, no dysuria, no hematuria, no change in the color of stool. No hematemesis , melena or any other discomfort. ROS Constitutional: chills, fatigue, febrile, other, poor po, No diaphoresis, No disoriented, No improved, No nausea, No no complaints, No weight change Eyes: No discharge, No no complaints, No other, No pain, No redness, No visual change ENT: No bleeding, No congestion, No discharge, No dysphagia, No no complaints, No other, No pain, No sore throat Respiratory: cough, shortness of breath, sputum, No no complaints, No other, No pain, No pleuritic pain, No wheezing Cardiovascular: lightheadedness, No chest pain, No edema, No no complaints, No orthopenea, No other, No palpitations, No paroxysmal nocturnal dyspnea Gastrointestinal: No blood, No constipation, No decreased appetite, No diarrhea , No flatus, No nausea, No no complaints, No other, No pain, No passing stool, No vomiting Genitourinary: No bleeding, No discharge, No dysuria, No flank pain, No hematuria, No no complaints, No other Musculoskeletal: bone/joint pain, No back pain, No neck pain, No no complaints, No other, No restricted range of motion, No swelling Skin: No bruising, No erythema, No laceration, No no complaints, No other, No pruritis, No rash, No skin lesions Neurologic: dizziness, syncope, No confusion, No focal-weakness, No headache, No no complaints, No other, No seizure Endocrine: dry skin, polydypsia, polyuria, No no complaints, No other, No temp intolerance, No weight change Lymphatic: No adenopathy, No lymphadema, No no complaints, No other, No tender nodes Psychological: anxiety, No confusion, No depression, No nl mood/affect, No no complaints, No other, No suicidal Immunologic: No immunodeficiency, No no complaints, No other, No pruritis, No rhinitis, No urticaria PMH/Family/Social Past Medical History Non compliant with medication Morbid obesity History of left lower extremity cellulitis. History of osteomyelitis of the left foot. Diabetic neuropathy. Medical History: diabetes, high cholesterol, hypertension, other (Multpile CVA with left sided weakness) Past Surgical History Past Surgical Hx: other (S/P left 2nd toe amputated) Family History Significant Family History: diabetes, hypertension, other (hyperlipidemia) Social History Alcohol Use: other (remote alcohol use) Smoking Status: Never smoker Drug Use: none Exam/Review of Systems Vital Signs Vitals Vital Signs Date Time Temp Pulse Resp B/P Pulse Ox O2 Delivery O2 Flow Rate FiO2 02/19/17 20:30 99 20 147/68 95 Room Air 02/19/17 19:41 99.0 Exam Constitutional: alert, oriented, other (he lookedseptic and sick. He is very obese. He is dysnic and tachypnic) Psych: anxiety, No confusion, No depression, No nl mood/affect, No no complaints, No other, No suicidal Head: atraumatic, normocephalic Eyes: EOMI, nl conjunctiva, nl lids ENMT: other (dry mouth and oral mucosa), No intubated, No mucosa pink and moist, No nl external ears & nose, No nl lips & teeth, No nl nasal mucosa & septum, No tympanic membranes Neck: non-tender, supple Respiratory: crackles/rales (on left lower lung field), normal air movement, No congested cough, No diminished breath sounds, No intercostal retraction, No labored breathing, No other, No respirations, No tactile fremitus, No wheezing Cardiovascular: nl pulses, regular rate and rhythm, No S3, No S4, No bruits, No diastolic murmur, No edema, No gallop, No irregular rhythm, No jugular venous distention (JVD), No murmurs/extra sounds, No other, No rub, No systolic murmur Gastrointestinal: distended, nl liver, spleen, non-tender, soft, No ascites, No bowel sounds, No firm, No hepatomegaly, No mass, No other, No rebound or guarding, No splenomegaly, No surgical scars, No tender Genitourinary - Male: No CVA tenderness, No other Genitourinary - Female: No other, No uterus Musculoskeletal: No joint tenderness, No muscle tone, No muscle weakness, No nl extremities to inspection, No nl gait and stance, No other, No range of motion, No spine non-tender, No swelling Extremities: No calf tenderness, No clubbing, No cyanosis, No edema, No normal pulses, No other, No palpable cord, No pitting pedal edema, No tenderness 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, DTR's symmetric, nl mental status, nl speech, nl strength, other, No confused, No focal weakness, No lethargic, No numbness, No reflexes, No unresponsive Skin: No diaphoresis, No ecchymosis, No laceration, No nl turgor, No other, No puncture, No rash or lesions Lymph: No enlarged, No nl lymph nodes, No nontender, No other Labs Result Diagram: 02/19/17 1825 02/19/171824 Medications Medications Current Medications Sodium Chloride (NS) 1,000 ml @ 100 mls/hr Q10H IV ; Start 02/19/17 at 20:42 Ondansetron HCl (Zofran Inj) 4 mg Q6H PRN IV NAUSEA AND/OR VOMITING; Start 12/27 at 21:00 Acetaminophen (Tylenol Tab) 650 mg Q6H PRN PO PAIN LEVEL 1-3 OR FEVER; Start 02/19/17 at 21:00 Acetaminophen/ Hydrocodone Bitart ([place] (5/325)) 1 tab Q6H PRN PO MODERATE PAIN LEVEL 4-6; Start 02/19/17 at 21:00 Morphine Sulfate (morphine) 2 mg Q4H PRN IV SEVERE PAIN LEVEL 7-10; Start 12/27 at 21:00 Docusate Sodium (Colace) 100 mg Q12H PRN PO CONSTIPATION; Start 02/19/17 at 21 :00 Magnesium Hydroxide (Milk Of Mag) 30 ml DAILY PRN PO CONSTIPATION; Start 02/19 at 21:00 Zolpidem Tartrate (Ambien) 5 mg QHS PRN PO SLEEP; Start 02/19/17 at 21:00 Famotidine (Pepcid) 20 mg Q12 PO ; Start 02/19/17 at 21:00 Enoxaparin Sodium 40 mg 40 mg DAILY SC ; Start 02/20/17 at 09:00 Piperacillin Sod/ Tazobactam Sod (Zosyn 3.375gm/ 50 ml (Pmx)) 50 ml @ 100 mls/ hr Q8 IVPB ; Start 02/19/17 at 22:00 Aspirin (Halfprin) 81 mg DAILY PO ; Start 02/20/17 at 09:00 Atorvastatin Calcium (Lipitor) 80 mg QHS PO ; Start 02/19/17 at 21:00 Metoprolol Succinate (Toprol Xl) 25 mg DAILY PO ; Start 02/19/17 at 21:00 Lisinopril 40 mg 40 mg DAILY PO ; Start 02/19/17 at 21:00 Magnesium Sulfate (Magnesium Sulfate 2 Gm/50 ml) 50 ml @ 25 mls/hr ONCE ONCE IVPB ; Start 02/19/17 at 21:00; Stop 02/19/17 at 22:59 Miscellaneous Information 1 ea NOTE XX ; Start 02/19/17 at 21:30 Glucose (Glutose) 15 gm Q15M PRN PO DECREASED GLUCOSE; Start 02/19/17 at 21:30 Glucose (Glutose) 22.5 gm Q15M PRN PO DECREASED GLUCOSE; Start 02/19/17 at 21: 30 Dextrose (D50w Syringe) 25 ml Q15M PRN IV DECREASED GLUCOSE; Start 02/19/17 at 21:30 Dextrose (D50w Syringe) 50 ml Q15M PRN IV DECREASED GLUCOSE; Start 02/19/17 at 21:30 Glucagon (Glucagen) 1 mg Q15M PRN IM DECREASED GLUCOSE; Start 02/19/17 at 21: 30 Glucose (Glutose) 15 gm Q15M PRN BUCCAL DECREASED GLUCOSE; Start 02/19/17 at 21:30 Miscellaneous Information (* Miscellaneous Pharmacy Order) Discontinue current oral sulfonylur... ONCE ONCE XX ; Start 02/19/17 at 21:30; Stop 02/19/17 at 21:31; Status UNV Diagnostic Test (Pha) (Accu-Chek) 1 ea 02 XX ; Start 02/20/17 at 02:00; Status UNV Miscellaneous Information (* Miscellaneous Pharmacy Order) HYPOGLYCEMIA PROTOCOL w... ONCE ONCE XX ; Start 02/19/17 at 21:30; Stop 02/19/17 at 21:31 ; Status UNV Miscellaneous Information (* Miscellaneous Pharmacy Order) Discontinue all previ... ONCE ONCE XX ; Start 02/19/17 at 21:30; Stop 02/19/17 at 21:31; Status UNV Procedures Procedures CXR showed bilateral interstitial infiltrate on both lower lungs KATIE CHOWDARY MD Feb 19, 2017 21:18
[2017-02-19] MEDS ORDERED: GLUCOSE GEL 15 GRAM TUBE BUCCAL PRN (21:30)
[2017-02-19] MEDS ORDERED: GLUCOSE GEL 15 GRAM TUBE PO PRN ×2 (21:30)
[2017-02-19] MEDS ORDERED: DEXTROSE 50% 50 ML SYRINGE IV PRN ×2 (21:30)
[2017-02-19] MEDS ORDERED: VANCOMYCIN IV PER PHARMACY XX SCH (21:30)
[2017-02-19] MEDS ORDERED: GLUCAGON 1 MG INJ IM PRN (21:30)
[2017-02-19 21:42] VITALS: PULSE 101
[2017-02-19] MEDS ORDERED: hydrALAzine 20 MG INJ IV PRN (22:00)
[2017-02-19 22:30] VITALS: Ht 167.6 cm; Wt 105.7 kg
[2017-02-19] MEDS: SOD CHLORIDE 0.9% 1,000 ML IV SCH (23:07)
[2017-02-19] MEDS: LISINOPRIL 20 MG TAB PO SCH (23:26)
[2017-02-19] MEDS: ATORVASTATIN 80 MG TAB PO SCH (23:27)
[2017-02-19] MEDS: FAMOTIDINE 20 MG TAB PO SCH (23:27)
[2017-02-19] MEDS: METOPROLOL (XL) 25 MG TAB PO SCH (23:27)
[2017-02-19] MEDS: PIPER-TAZO 3.375 GM IV (PMX) 50 ML IVPB SCH (23:29)
[2017-02-20] MEDS ORDERED: VANCOMYCIN 1 GM in NS 250 ML IVPB SCH (00:30)
[2017-02-20] MEDS: ACCU-CHEK XX SCH (02:00)
[2017-02-20 03:17] VITALS: BP 115/67; RESP 18
[2017-02-20] MEDS: LEVOFLOXACIN 750MG/D5W (PMX) 150 ML IVPB SCH ×2 (04:00→21:10)
[2017-02-20 05:20] LABS: BASOPHILS % 0.3 % (0.0-2.0); EOSINOPHILS # 0.1 10^3/ul (0.0-0.5); EOSINOPHILS % 0.4 % (0.0-7.0); HEMATOCRIT 36.2 % (42.0-52.0); HEMOGLOBIN 11.8 g/dl (14.0-18.0); LYMPHOCYTES # 1.2 10^3/ul (0.8-2.9); LYMPHOCYTES % 10.7 % (15.0-51.0); MEAN CORPUSCULAR HEMOGLOBIN 28.9 pg (29.0-33.0); MEAN CORPUSCULAR HGB CONC 32.6 g/dl (32.0-37.0); MEAN CORPUSCULAR VOLUME 88.7 fl (82.0-101.0); MEAN PLATELET VOLUME 11.3 fl (7.4-10.4); MONOCYTE # 1.3 10^3/ul (0.3-0.9); MONOCYTES % 11.3 % (0.0-11.0); NEUTROPHIL # 8.7 10^3/ul (1.6-7.5); NEUTROPHILS % 76.8 % (39.0-77.0); PLATELET COUNT 211 10^3/UL (140-415); RED BLOOD COUNT 4.08 10^6/ul (4.70-6.10); RED CELL DISTRIBUTION WIDTH 13.7 % (11.5-14.5); WHITE BLOOD COUNT 11.3 10^3/ul (4.8-10.8)
[2017-02-20 05:44] LABS: ALBUMIN 2.9 g/dl (3.3-4.9); ALBUMIN/GLOBULIN RATIO 0.87; BILIRUBIN,INDIRECT 0.4 mg/dl (0-1.1); BILIRUBIN,TOTAL 0.4 mg/dl (0.2-1.3); CHOL/HDL RATIO 4.1 RATIO; CREATININE 0.85 mg/dl (0.61-1.24); POTASSIUM 3.5 mmol/L (3.5-5.1); TOTAL PROTEIN 6.2 g/dl (6.1-8.1)
[2017-02-20 05:54] LABS: T3 UPTAKE 43.9 % (23.5-40.5)
[2017-02-20 06:07] LABS: THYROID STIMULATING HORMONE 1.62 MIU/L (0.465-4.680)
[2017-02-20] MEDS: PIPER-TAZO 3.375 GM IV (PMX) 50 ML IVPB SCH (07:09)
[2017-02-20 08:00] VITALS: BP 121/58; RESP 20
[2017-02-20] MEDS: SOD CHLORIDE 0.9% 1,000 ML IV SCH (08:14)
[2017-02-20] MEDS: INSULIN ASPART [NOVOLOG] 3 ML PEN SC SCH ×3 (08:15→17:31)
[2017-02-20] MEDS: FAMOTIDINE 20 MG TAB PO SCH ×2 (09:09→20:49)
[2017-02-20] MEDS: METOPROLOL (XL) 25 MG TAB PO SCH (09:09)
[2017-02-20] MEDS: LISINOPRIL 20 MG TAB PO SCH (09:09)
[2017-02-20] MEDS: ASPIRIN (EC) 81 MG TAB PO SCH (09:09)
[2017-02-20] MEDS: ENOXAPARIN 40 MG/0.4 ML SYG SC SCH (09:12)
--- NOTE | 2017-02-20 11:25 | PN ---
Date/Time of Note Date/Time of Note DATE: 02/20/17 TIME: 10:54 Assessment/Plan VTE Prophylaxis VTE Prophylaxis Intervention: LMWH Lines/Catheters [facility] Peripheral IV Urinary Cath still in place: No Assessment/Plan Assessment/Plan 66-year-old male with: 1. Sepsis, secondary to CAP versus possibly urinary tract infection, cultures are pending, chest x-ray did show a possible left lower lobe atelectasis versus infiltrate. Patient's WBC is trending down while on Zosyn, Levaquin and vancomycin. We will narrow his antibiotics down to Levaquin and vancomycin for now. Follow-up cultures Repeat chest x-ray, 2 view today. Patient is otherwise hemodynamically able on room air Discharge planning in the next 24 hours if blood culture remains negative. 2. Uncontrolled diabetes mellitus, largely due to noncompliance, A1c of 10.5. Diabetic education will be ordered. Continue current medications. Agree with current regimen, patient dose as ultra resistant. Follow-up further recommendations from certified lactation educator. 3. Hypertension: Continue SANTOS inhibitors. 4. Dizziness: Resolve as of this morning, PT eval pending. 5. Old CVA: No additional deficits noted, PT eval pending, continue current secondary prevention with statin therapy, blood pressure control, antiplatelet. 6. Morbid obesity: Patient needs to be more compliant with diet. Also needs better blood sugar control. Prophylaxis: Lovenox for DVT prophylaxis, Pepcid for GI prophylaxis Disposition: Repeat chest x-ray today, follow-up on blood cultures and urine cultures for further antibiotics adjustments. PT eval. Diabetic education. Subjective 24 Hr Interval Summary Free Text/Dictation Patient doing well this morning, he is sitting up in the chair, he is on room air, he is still coughing nonproductive. WBC is trending down, cultures are pending including urine culture. Will repeat chest x-ray two-view today. Will narrow antibiotics down to Levaquin and vancomycin while awaiting cultures. Exam/Review of Systems Vital Signs Vitals Vital Signs Date Time Temp Pulse Resp B/P Pulse Ox O2 Delivery O2 Flow Rate FiO2 02/20/17 08:00 98.1 75 20 121/58 95 02/19/17 21:42 Room Air Intake and Output 02/19/17 02/19/17 02/20/17 15:00 23:00 07:00 Intake Total 770 ml Balance 770 ml Exam Constitutional: alert, obese (Morbid), oriented, well developed Respiratory: diminished breath sounds (At the bases, left greater than right), normal air movement Cardiovascular: nl pulses, regular rate and rhythm Gastrointestinal: non-tender, soft Musculoskeletal: nl extremities to inspection, nl gait and stance Extremities: normal pulses, other (No edema, clubbing or cyanosis) 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, nl mental status, nl speech, nl strength Results Result Diagram: 02/20/179 02/20/179 Results 24 hrs Laboratory Tests Test 02/19/17 18:05 02/19/17 18:25 02/19/17 20:00 02/19/17 20:29 Blood Gas Specimen Source Blood venous Arterial Blood Date Drawn 02/19/2017 7:40:54 PM Arterial Blood Gas Puncture Site VENOUS LINE Tani Test N/A Venous Blood pH 7.403 Venous Blood pCO2 (Temp Corrected) 39.1 Venous Blood pO2 (Temp Corrected) 43.1 H Venous Blood HCO3 23.8 Venous Blood Oxygen Saturation 82.4 H Venous Blood Base Excess -0.7 Venous Blood Total Hemoglobin 15.1 Venous Blood Oxyhemoglobin 81.7 Venous Blood Methemoglobin 0 Carboxyhemoglobin 0.9 Blood Gas Temperature 37.0 Blood Gas Modality ROOM AIR FiO2 21.0 Blood Gas Notified Whom BL Blood Gas Notified Time 02/19/2017 7:55:04 PM White Blood Count 16.0 #H Red Blood Count 4.76 Hemoglobin 14.0 Hematocrit 41.9 L Mean Corpuscular Volume 88.0 Mean Corpuscular Hemoglobin 29.4 Mean Corpuscular Hemoglobin Concent 33.4 Red Cell Distribution Width 13.6 Platelet Count 255 Mean Platelet Volume 11.2 H Neutrophils % 89.8 H Lymphocytes % 2.1 L Monocytes % 7.0 Eosinophils % 0.1 Basophils % 0.3 Nucleated Red Blood Cells % 0.0 Neutrophils # 14.4 H Lymphocytes # 0.3 L Monocytes # 1.1 H Eosinophils # 0.0 Basophils # 0.1 Nucleated Red Blood Cells # 0.0 Prothrombin Time 14.2 Prothrombin Time Ratio 1.1 INR International Normalized Ratio 1.09 Activated Partial Thromboplast Time 32.6 Sodium Level 136 Potassium Level 3.9 Chloride Level 99 Carbon Dioxide Level 26 Anion Gap 15 Blood Urea Nitrogen 12 Creatinine 0.85 Glucose Level 332 H Lactic Acid Level 2.2 *H 1.3 Calcium Level 8.8 Phosphorus Level 2.3 L Magnesium Level 1.5 L Total Bilirubin 0.3 Direct Bilirubin 0.00 Indirect Bilirubin 0.3 Aspartate Amino Transf (AST/SGOT) 25 Alanine Aminotransferase (ALT/SGPT) 39 Alkaline Phosphatase 125 H Troponin I < 0.012 Total Protein 7.1 Albumin 3.7 Globulin 3.40 H Albumin/Globulin Ratio 1.08 Urine Color YELLOW Urine Clarity CLEAR Urine pH 5.0 Urine Specific [place] 1.021 Urine Ketones 1+ H Urine Nitrite NEGATIVE Urine Bilirubin NEGATIVE Urine Urobilinogen NEGATIVE Urine Leukocyte Esterase NEGATIVE Urine Microscopic RBC 5 Urine Microscopic WBC 1 Urine Bacteria FEW A Urine Hemoglobin 1+ H Urine Glucose 3+ H Urine Total Protein 2+ H Test 02/19/17 22:23 02/19/17 22:42 02/20/17 04:49 02/20/17 08:13 Hemoglobin A1c 10.6 H 10.5 H Lactic Acid Level 1.3 Bedside Glucose 260 H 211 White Blood Count 11.3 #H Red Blood Count 4.08 L Hemoglobin 11.8 L Hematocrit 36.2 L Mean Corpuscular Volume 88.7 Mean Corpuscular Hemoglobin 28.9 L Mean Corpuscular Hemoglobin Concent 32.6 Red Cell Distribution Width 13.7 Platelet Count 211 Mean Platelet Volume 11.3 H Neutrophils % 76.8 Lymphocytes % 10.7 L Monocytes % 11.3 H Eosinophils % 0.4 Basophils % 0.3 Nucleated Red Blood Cells % 0.0 Neutrophils # 8.7 H Lymphocytes # 1.2 Monocytes # 1.3 H Eosinophils # 0.1 Basophils # 0.0 Nucleated Red Blood Cells # 0.0 Sodium Level 140 Potassium Level 3.5 Chloride Level 105 Carbon Dioxide Level 27 Anion Gap 12 Blood Urea Nitrogen 13 Creatinine 0.85 Glucose Level 261 H Calcium Level 8.0 L Total Bilirubin 0.4 Direct Bilirubin 0.00 Indirect Bilirubin 0.4 Aspartate Amino Transf (AST/SGOT) 25 Alanine Aminotransferase (ALT/SGPT) 39 Alkaline Phosphatase 83 Total Protein 6.2 Albumin 2.9 L Globulin 3.30 H Albumin/Globulin Ratio 0.87 Triglycerides Level 60 Cholesterol Level 104 LDL Cholesterol, Calculated 67 HDL Cholesterol 25 L Cholesterol/HDL Ratio 4.1 Thyroid Stimulating Hormone (TSH) 1.620 Free Thyroxine Index 1.93 Thyroxine (T4) 4.4 L Triiodothyronine (T3) Uptake 43.9 H Test 02/20/17 08:20 Magnesium Level 2.2 Medications Medications Current Medications Sodium Chloride (NS) 1,000 ml @ 100 mls/hr Q10H IV Last administered on 08:14; Admin Dose 100 MLS/HR; Start 02/19/17 at 20:42 Ondansetron HCl (Zofran Inj) 4 mg Q6H PRN IV NAUSEA AND/OR VOMITING; Start 12/27 at 21:00 Acetaminophen (Tylenol Tab) 650 mg Q6H PRN PO PAIN LEVEL 1-3 OR FEVER; Start 02/19/17 at 21:00 Acetaminophen/ Hydrocodone Bitart ([place] (5/325)) 1 tab Q6H PRN PO MODERATE PAIN LEVEL 4-6; Start 02/19/17 at 21:00 Morphine Sulfate (morphine) 2 mg Q4H PRN IV SEVERE PAIN LEVEL 7-10; Start 12/27 at 21:00 Docusate Sodium (Colace) 100 mg Q12H PRN PO CONSTIPATION; Start 02/19/17 at 21 :00 Magnesium Hydroxide (Milk Of Mag) 30 ml DAILY PRN PO CONSTIPATION; Start 02/19 at 21:00 Zolpidem Tartrate (Ambien) 5 mg QHS PRN PO SLEEP; Start 02/19/17 at 21:00 Famotidine (Pepcid) 20 mg Q12 PO Last administered on 02/20/17 09:09; Admin Dose 20 MG; Start 02/19/17 at 21:00 Enoxaparin Sodium 40 mg 40 mg DAILY SC Last administered on 02/20/17 09:12; Admin Dose 40 MG; Start 02/20/17 at 09:00 Piperacillin Sod/ Tazobactam Sod (Zosyn 3.375gm/ 50 ml (Pmx)) 50 ml @ 100 mls/ hr Q8 IVPB Last administered on 02/20/17 07:09; Admin Dose 100 MLS/HR; Start 02/19/17 at 22:00 Aspirin (Halfprin) 81 mg DAILY PO Last administered on 02/20/17 09:09; Admin Dose 81 MG; Start 02/20/17 at 09:00 Atorvastatin Calcium (Lipitor) 80 mg QHS PO Last administered on 02/19/17 23: 27; Admin Dose 80 MG; Start 02/19/17 at 21:00 Metoprolol Succinate (Toprol Xl) 25 mg DAILY PO Last administered on 09:09; Admin Dose 25 MG; Start 02/19/17 at 21:00 Lisinopril (Zestril) 40 mg DAILY PO Last administered on 02/20/17 09:09; Admin Dose 40 MG; Start 02/19/17 at 21:00 Miscellaneous Information 1 ea NOTE XX ; Start 02/19/17 at 21:30 Glucose (Glutose) 15 gm Q15M PRN PO DECREASED GLUCOSE; Start 02/19/17 at 21:30 Glucose (Glutose) 22.5 gm Q15M PRN PO DECREASED GLUCOSE; Start 02/19/17 at 21: 30 Dextrose (D50w Syringe) 25 ml Q15M PRN IV DECREASED GLUCOSE; Start 02/19/17 at 21:30 Dextrose (D50w Syringe) 50 ml Q15M PRN IV DECREASED GLUCOSE; Start 02/19/17 at 21:30 Glucagon (Glucagen) 1 mg Q15M PRN IM DECREASED GLUCOSE; Start 02/19/17 at 21: 30 Glucose (Glutose) 15 gm Q15M PRN BUCCAL DECREASED GLUCOSE; Start 02/19/17 at 21:30 Diagnostic Test (Pha) 1 ea 1 ea 02 XX ; Start 02/20/17 at 02:00 Levofloxacin/ Dextrose (Levaquin 750 Mg/ D5W 150 ml (Pmx)) 150 ml @ 100 mls/hr Q24H IVPB Last administered on 02/20/17 04:00; Admin Dose 100 MLS/HR; Start 02/19/17 at 21:30 Hydralazine HCl 10 mg 10 mg Q6H PRN IV ELEVATED BLOOD PRESSURE; Start at 22:00 Vancomycin HCl/ Sodium Chloride (Vancocin/NS) 250 ml @ 83.333 mls/ hr Q12H IVPB ; Start 02/20/17 at 14:00 Miscellaneous Information (*Rx Drug Level Order Reminder*) VANCO TROUGH @ 1, 300 ON ... ONCE ONCE XX ; Start 02/21/17 at 13:00; Stop 02/21/17 at 13:01 STEPHANIE CUEVAS Feb 20, 2017 11:09
[2017-02-20] MEDS: VANCOMYCIN 1.5 GM in SOD CHLORIDE 0.9% 250 ML IVPB SCH (14:31)
--- NOTE | 2017-02-20 14:37 | RADRPT ---
PROCEDURE: XR PA and lateral chest radiograph CLINICAL INDICATION: Pneumonia TECHNIQUE: PA lateral chest radiograph COMPARISON: Portable chest radiograph 02/19/2017 FINDINGS: Slight increase in size of cardiac silhouette which is slightly enlarged. Increase in retrocardiac opacity. Spondylosis of the visualized spine. No other significant interval changes seen increase including evidence of old left rib fracture. IMPRESSION: 1. Slight increase in size of cardiac silhouette which is slightly enlarged 2. Increase in retrocardiac opacity which could be secondary to consolidation or atelectasis RPTAT: TT Physician Lexi Date Time Electronically viewed and signed by Physician Lexi on 02/20/2017 14:37 JS/
[2017-02-20 15:09] VITALS: BP 119/63; RESP 18
[2017-02-20] MEDS ORDERED: GUAIFENESIN 20 MG/ML 5ML CUP PO PRN (17:30)
[2017-02-20] MEDS ORDERED: ARTIFICIAL TEARS 15 ML OPH BOTH EYES PRN (17:30)
[2017-02-20] MEDS ORDERED: INSULIN GLARGINE [LANtus] 3 ML PEN SC SCH (20:00)
[2017-02-20 20:05] VITALS: BP 158/65; RESP 19
[2017-02-20] MEDS: ATORVASTATIN 80 MG TAB PO SCH (20:49)
[2017-02-21] MEDS: ACCU-CHEK XX SCH (02:00)
[2017-02-21 02:04] VITALS: BP 149/72; RESP 18
[2017-02-21] MEDS: VANCOMYCIN 1.5 GM in SOD CHLORIDE 0.9% 250 ML IVPB SCH (02:37)
[2017-02-21 06:55] LABS: BASOPHILS % 0.2 % (0.0-2.0); EOSINOPHILS # 0.1 10^3/ul (0.0-0.5); EOSINOPHILS % 1.1 % (0.0-7.0); HEMATOCRIT 38.6 % (42.0-52.0); HEMOGLOBIN 12.6 g/dl (14.0-18.0); LYMPHOCYTES % 11.6 % (15.0-51.0); MEAN CORPUSCULAR HEMOGLOBIN 28.9 pg (29.0-33.0); MEAN CORPUSCULAR HGB CONC 32.6 g/dl (32.0-37.0); MEAN CORPUSCULAR VOLUME 88.5 fl (82.0-101.0); MEAN PLATELET VOLUME 11.4 fl (7.4-10.4); MONOCYTE # 0.9 10^3/ul (0.3-0.9); MONOCYTES % 10.2 % (0.0-11.0); NEUTROPHIL # 6.6 10^3/ul (1.6-7.5); NEUTROPHILS % 76.4 % (39.0-77.0); PLATELET COUNT 231 10^3/UL (140-415); RED BLOOD COUNT 4.36 10^6/ul (4.70-6.10); RED CELL DISTRIBUTION WIDTH 13.7 % (11.5-14.5); WHITE BLOOD COUNT 8.7 10^3/ul (4.8-10.8)
[2017-02-21 07:19] LABS: CALCIUM 8.2 mg/dl (8.4-10.2); CREATININE 0.83 mg/dl (0.61-1.24); POTASSIUM 3.4 mmol/L (3.5-5.1)
[2017-02-21 07:32] VITALS: BP 157/77; RESP 18
[2017-02-21 07:55] LABS: MAGNESIUM 1.9 mg/dl (1.7-2.5); PHOSPHORUS 2.8 mg/dl (2.5-4.9)
[2017-02-21] MEDS: INSULIN ASPART [NOVOLOG] 3 ML PEN SC SCH ×2 (08:02→11:47)
[2017-02-21] MEDS: LISINOPRIL 20 MG TAB PO SCH (08:57)
[2017-02-21] MEDS: FAMOTIDINE 20 MG TAB PO SCH (08:57)
[2017-02-21] MEDS: ASPIRIN (EC) 81 MG TAB PO SCH (08:57)
[2017-02-21] MEDS: METOPROLOL (XL) 25 MG TAB PO SCH (08:58)
[2017-02-21] MEDS: ENOXAPARIN 40 MG/0.4 ML SYG SC SCH (09:00)
[2017-02-21] MEDS ORDERED: POTASSIUM CHLORIDE (SR) 20 MEQ TAB PO STA (09:54)
--- NOTE | 2017-02-21 11:00 | PN ---
Date/Time of Note Date/Time of Note DATE: 02/21/17 TIME: 10:50 Assessment/Plan VTE Prophylaxis VTE Prophylaxis Intervention: LMWH Lines/Catheters IV [facility] Type (from [facility] Peripheral IV Urinary Cath still in place: No Assessment/Plan Assessment/Plan 66-year-old male with: 1. Sepsis, secondary to CAP Blood cultures and urine culture are negative. Repeat 2 view chest x-ray yesterday does show retrocardiac left lower lobe possible infiltrate. Patient on room air and doing well, he will be discharged home today on Levaquin p.o. 750 mg p.o. daily for 5 more days. 2. Uncontrolled diabetes mellitus, largely due to noncompliance, A1c of 10.5. D Sugar much controlled with current regimen, will discharge patient on this current regimen and follow-up with diabetic education versus endocrinology referral as an outpatient through his insurance. 3. Hypertension: Continue SANTOS inhibitors. 4. Old CVA: No additional deficits noted, appreciate physical therapy evaluation. Continue current secondary prevention with statin therapy, blood pressure control, antiplatelet. 5. Morbid obesity: Patient needs to be more compliant with diet. Also needs better blood sugar control. 6. Left lower extremity mild edema compared to the right lower extremity, likely secondary to poor venous return, check Doppler lower extremities bilateral to rule out DVT. Prophylaxis: Lovenox for DVT prophylaxis, Pepcid for GI prophylaxis Disposition: Doppler lower extremities have been done, results pending, plan for discharge home on oral antibiotics for community-acquired pneumonia today as long as Doppler negative. Patient will need home health RN and home health PT, alternative would be to discharge him to nursing home facility if patient is agreeable Subjective 24 Hr Interval Summary Free Text/Dictation Patient doing well this morning, he remains on room air, repeat 2 views chest x- ray yesterday does show possible retrocardiac infiltrate/pneumonia, discharge home today with oral antibiotics for community-acquired pneumonia. Patient reports that he will be compliant with insulin regimen this time around. Exam/Review of Systems Vital Signs Vitals Vital Signs Date Time Temp Pulse Resp B/P Pulse Ox O2 Delivery O2 Flow Rate FiO2 02/21/17 07:32 98.9 76 18 157/77 95 02/19/17 21:42 Room Air Intake and Output 02/20/17 02/20/17 02/21/17 14:59 22:59 06:59 Intake Total 1100 ml 1160 ml 930 ml Balance 1100 ml 1160 ml 930 ml Exam Constitutional: alert, obese (Morbid), oriented, well developed Respiratory: clear to auscultation, normal air movement Cardiovascular: nl pulses, regular rate and rhythm Gastrointestinal: non-tender, soft Musculoskeletal: nl extremities to inspection, nl gait and stance Extremities: normal pulses, other (Mild edema left lower extremity more prominent than right. 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, nl mental status, nl speech, nl strength Results Result Diagram: 02/21/1751902/21/17519 Results 24 hrs Laboratory Tests Test 02/20/17 11:35 02/20/17 17:29 02/20/17 20:42 02/21/17 05:20 Bedside Glucose 206 116 115 White Blood Count 8.7 # Red Blood Count 4.36 L Hemoglobin 12.6 L Hematocrit 38.6 L Mean Corpuscular Volume 88.5 Mean Corpuscular Hemoglobin 28.9 L Mean Corpuscular Hemoglobin Concent 32.6 Red Cell Distribution Width 13.7 Platelet Count 231 Mean Platelet Volume 11.4 H Neutrophils % 76.4 Lymphocytes % 11.6 L Monocytes % 10.2 Eosinophils % 1.1 Basophils % 0.2 Nucleated Red Blood Cells % 0.0 Neutrophils # 6.6 Lymphocytes # 1.0 Monocytes # 0.9 Eosinophils # 0.1 Basophils # 0.0 Nucleated Red Blood Cells # 0.0 Sodium Level 140 Potassium Level 3.4 L Chloride Level 105 Carbon Dioxide Level 26 Anion Gap 12 Blood Urea Nitrogen 11 Creatinine 0.83 Glucose Level 114 # Calcium Level 8.2 L Phosphorus Level 2.8 Magnesium Level 1.9 Test 02/21/17 07:57 Bedside Glucose 125 Imaging Free Text/Dictation PROCEDURE: XR PA and lateral chest radiograph CLINICAL INDICATION: Pneumonia TECHNIQUE: PA lateral chest radiograph COMPARISON: Portable chest radiograph 02/19/2017 FINDINGS: Slight increase in size of cardiac silhouette which is slightly enlarged. Increase in retrocardiac opacity. Spondylosis of the visualized spine. No other significant interval changes seen increase including evidence of old left rib fracture. IMPRESSION: 1. Slight increase in size of cardiac silhouette which is slightly enlarged 2. Increase in retrocardiac opacity which could be secondary to consolidation or atelectasis RPTAT: TT Jett Mcallister Physician Date Time Electronically viewed and signed by Jett Mcallister Physician on 2016 14:37 Medications Medications Current Medications Ondansetron HCl (Zofran Inj) 4 mg Q6H PRN IV NAUSEA AND/OR VOMITING; Start 12/27 at 21:00 Acetaminophen (Tylenol Tab) 650 mg Q6H PRN PO PAIN LEVEL 1-3 OR FEVER; Start 02/19/17 at 21:00 Acetaminophen/ Hydrocodone Bitart ([place] (5/325)) 1 tab Q6H PRN PO MODERATE PAIN LEVEL 4-6; Start 02/19/17 at 21:00 Morphine Sulfate (morphine) 2 mg Q4H PRN IV SEVERE PAIN LEVEL 7-10; Start 12/27 at 21:00 Docusate Sodium (Colace) 100 mg Q12H PRN PO CONSTIPATION; Start 02/19/17 at 21 :00 Magnesium Hydroxide (Milk Of Mag) 30 ml DAILY PRN PO CONSTIPATION; Start 02/19 at 21:00 Zolpidem Tartrate (Ambien) 5 mg QHS PRN PO SLEEP; Start 02/19/17 at 21:00 Famotidine (Pepcid) 20 mg Q12 PO Last administered on 02/21/17 08:57; Admin Dose 20 MG; Start 02/19/17 at 21:00 Enoxaparin Sodium (Lovenox) 40 mg DAILY SC Last administered on 02/21/17 09: 00; Admin Dose 40 MG; Start 02/20/17 at 09:00 Aspirin (Halfprin) 81 mg DAILY PO Last administered on 02/21/17 08:57; Admin Dose 81 MG; Start 02/20/17 at 09:00 Atorvastatin Calcium (Lipitor) 80 mg QHS PO Last administered on 02/20/17 20: 49; Admin Dose 80 MG; Start 02/19/17 at 21:00 Metoprolol Succinate (Toprol Xl) 25 mg DAILY PO Last administered on 08:58; Admin Dose 25 MG; Start 02/19/17 at 21:00 Lisinopril (Zestril) 40 mg DAILY PO Last administered on 02/21/17 08:57; Admin Dose 40 MG; Start 02/19/17 at 21:00 Miscellaneous Information 1 ea NOTE XX ; Start 02/19/17 at 21:30 Glucose (Glutose) 15 gm Q15M PRN PO DECREASED GLUCOSE; Start 02/19/17 at 21:30 Glucose (Glutose) 22.5 gm Q15M PRN PO DECREASED GLUCOSE; Start 02/19/17 at 21: 30 Dextrose (D50w Syringe) 25 ml Q15M PRN IV DECREASED GLUCOSE; Start 02/19/17 at 21:30 Dextrose (D50w Syringe) 50 ml Q15M PRN IV DECREASED GLUCOSE; Start 02/19/17 at 21:30 Glucagon (Glucagen) 1 mg Q15M PRN IM DECREASED GLUCOSE; Start 02/19/17 at 21: 30 Glucose (Glutose) 15 gm Q15M PRN BUCCAL DECREASED GLUCOSE; Start 02/19/17 at 21:30 Diagnostic Test (Pha) 1 ea 1 ea 02 XX ; Start 02/20/17 at 02:00 Levofloxacin/ Dextrose (Levaquin 750 Mg/ D5W 150 ml (Pmx)) 150 ml @ 100 mls/hr Q24H IVPB Last administered on 02/20/17 21:10; Admin Dose 100 MLS/HR; Start 02/19/17 at 21:30 Hydralazine HCl (Apresoline) 10 mg Q6H PRN IV ELEVATED BLOOD PRESSURE; Start 02/19/17 at 22:00 Insulin Glargine (Lantus) 26 unit DAILY@20 SC Last administered on 02/20/17 20:48; Admin Dose 26 UNIT; Start 02/20/17 at 20:00 Guaifenesin (Robitussin Liquid Cup) 100 mg Q4H PRN PO COUGH; Start 02/20/17 at 17:30 Eye Lubricant (Artificial Tears Oph) 2 drop Q6H PRN BOTH EYES DRY EYES; Start 02/20/17 at 17:30 STEPHANIE CUEVAS Feb 21, 2017 11:00
--- NOTE | 2017-02-21 11:08 | PDOCDIS ---
Discharge Instructions CONDITION Patient Condition: Stable HOME CARE INSTRUCTIONS: Special Diet: carb controlled diet ACTIVITY: Activity Restrictions: Slowly Increase Activity FOLLOW UP/APPOINTMENTS Follow-up Plan Follow-up with primary care physician within 1 week Referral as an outpatient to endocrinology through [facility] and/or diabetic clinic within 1-2 weeks, hemoglobin A1c 10.5. Home health RN check and home health physical therapy STEPHANIE CUEVAS Feb 21, 2017 11:08
--- NOTE | 2017-02-21 11:11 | RADRPT ---
PROCEDURE: Ultrasound of the bilateral lower extremity venous system. CLINICAL INDICATION: Bilateral leg pain and swelling, deep venous thrombosis TECHNIQUE: Benites scale with and without compression, color doppler, spectral doppler of the venous system of the bilateral lower extremities was performed. Venous augmentation maneuvers were utilized . COMPARISON: US EXTREMITY 05/04/2016 FINDINGS: Right: Common femoral vein: Patent. Femoral vein: Patent. Popliteal vein: Patent. Calf veins: Patent. No soft tissue abnormalities are identified. Left: Common femoral vein: Patent. Femoral vein: Patent. Popliteal vein: Patent. Calf veins: Patent. No soft tissue abnormalities are identified. IMPRESSION: No evidence of a deep vein thrombosis within the bilateral lower extremities. RPTAT: AADD .Gerard Delvalle MD, MD Date Time Electronically viewed and signed by .Gerard Delvalle MD, MD on 02/21/2017 11:11 .B/
[2017-02-21] MEDS ORDERED: FAMO20TA18 PO (11:17)
[2017-02-21] MEDS ORDERED: INSU200I SQ (11:17)
[2017-02-21] MEDS ORDERED: LANT3I SC (11:17)
[2017-02-21] MEDS ORDERED: LISI20TA11 PO (11:17)
[2017-02-21] MEDS ORDERED: LEVO750T25 PO (11:20)
--- NOTE | 2017-02-21 16:21 | DS ---
Date/Time of Note Date/Time of Note DATE: 02/21/17 TIME: 16:16 Discharge Summary Admission/Discharge Info Admit Date/Time Feb 19, 2017 at 19:53 Discharge Date/Time Feb 21, 2017 at 14:00 Discharge Diagnosis 1. Community-acquired pneumonia. 2. Sepsis, secondary to CAP. 3. Uncontrolled diabetes mellitus. 4. Hypertension. 5. Old CVA. 6. Morbid obesity. 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 He was transferred from home due to syncopal episode. His family stated that last time he was here ,his blood sugar was very high. According to last H&P from neurologist, he has not been compliant with his Lantus. According to him, he has been lazy and has not gone to get his medication. He is a very poor historian, and he states that he sometimes takes some of his medication if he remembers to take them. Today upon arrival to emergency room, his temperature was 103, pulse 118, respirations 20, blood pressure 176/81, oxygen saturation 99%. He denies having any chest pain, shortness of breath, nausea, vomiting, diarrhea. He felt dizzy at home and also had lightheadedness. No change in visual acuity, diplopia, photophobia. No right-sided facial droop and left lower extremity weakness. No abdominal pain, no dysuria, no hematuria, no change in the color of stool. No hematemesis , melena or any other discomfort. Hospital Course Patient was started on triple antibiotics including vancomycin, Zosyn and Levaquin upon admission, he stabilized within 24 hours, WBC started trending down, chest x-ray did show a retrocardiac left lower lobe infiltrate, repeat chest x-ray did confirm it, therefore patient was maintained on Levaquin for treatment of community-acquired pneumonia. His WBC has normalized as of today, he is afebrile, blood sugars are well controlled, he is on an appropriate regimen and has been seen by the crtt. He will be discharged. Patient has refused [facility] facility placement and very insistent on going home with his anabaptist family helping him out. He kept refusing [facility] facility despite myself talking to him and also case management talking to him. Therefore his discharge home with home health nurse and physical therapy and also with appropriate insulin regimen and outpatient oral antibiotics. Hopefully he will remain compliant this time around. Home Meds Active Scripts Levofloxacin* (Levaquin*) 750 Mg Tablet, 750 MG PO DAILY for 5 Days, TAB Prov:STEPHANIE CUEVAS 02/21/17 Insulin Lispro (Humalog Kwikpen) 200 Unit/1 Ml Insuln.pen, 9 UNIT SQ AC MEALS, # 1 EA 3 Refills Prov:STEPHANIE CUEVAS 02/21/17 Insulin Glargine* (Lantus*) 100 Unit/Ml Soln, 26 UNIT SC DAILY@20 for 30 Days, 3 Refills Please provide pen form and any form of insulin glargine or equivalent long acting insulin covered by the patient's insurance at the same dosage Prov:STEPHANIE CUEVAS 02/21/17 Famotidine* (Famotidine*) 20 Mg Tablet, 20 MG PO Q12 for 30 Days, TAB 3 Refills Prov:STEPHANIE CUEVAS 02/21/17 Lisinopril* (Lisinopril*) 20 Mg Tablet, 40 MG PO DAILY for 30 Days, TAB 3 Refills Prov:STEPHANIE CUEVAS 02/21/17 Atorvastatin* (Atorvastatin*) 80 Mg Tablet, 80 MG PO QHS, #60 TAB 1 Refill Prov:RAISSA OLSON 05/09/16 Metoprolol Succinate* (Toprol XL*) 25 Mg Tab.sr.24h, 25 MG PO DAILY, #60 TAB 1 Refill Prov:RAISSA OLSON 05/09/16 Aspirin* (Aspirin* EC) 81 Mg Tablet.dr, 81 MG PO DAILY, #90 TAB 1 Refill Prov:NA OLSONDennis 05/09/16 Discontinued Scripts Insulin Lispro (Humalog) 100 Unit/1 Ml Cartridge, 5 UNIT SQ WITH MEALS, #1 VIAL Prov:NA OLSONDennis 05/09/16 Insulin Glargine* (Lantus*) 100 Unit/Ml Soln, 15 UNIT SC QHS, #1 VIAL Prov:RAISSA OLSON 05/09/16 Lisinopril* (Lisinopril*) 10 Mg Tablet, 10 MG PO DAILY, #60 TAB 1 Refill Prov:RAISSA OLSON 05/09/16 Follow-up Plan Follow-up with primary care physician within 1 week Referral as an outpatient to endocrinology through [facility] and/or diabetic clinic within 1-2 weeks, hemoglobin A1c 10.5. Home health RN check and home health physical therapy Primary Care Provider Care Physician No Primary Time spent on discharge: > 30 minutes Pending Labs Laboratory Tests Test 02/20/17 17:29 02/20/17 20:42 02/21/17 05:20 02/21/17 07:57 Bedside Glucose 116mg/dL (70-220) 115mg/dL (70-220) 125mg/dL (70-220) White Blood Count 8.710^3/ul (4.8-10.8) Red Blood Count 4.3610^6/ul (4.70-6.10) Hemoglobin 12.6g/dl (14.0-18.0) Hematocrit 38.6% (42.0-52.0) Mean Corpuscular Volume 88.5fl (82.0-101.0) Mean Corpuscular Hemoglobin 28.9pg (29.0-33.0) Mean Corpuscular Hemoglobin Concent 32.6g/dl (32.0-37.0) Red Cell Distribution Width 13.7% (11.5-14.5) Platelet Count 31427^3/UL (140-415) Mean Platelet Volume 11.4fl (7.4-10.4) Neutrophils % 76.4% (39.0-77.0) Lymphocytes % 11.6% (15.0-51.0) Monocytes % 10.2% (0.0-11.0) Eosinophils % 1.1% (0.0-7.0) Basophils % 0.2% (0.0-2.0) Nucleated Red Blood Cells % 0.0/100WBC (0.0-0.0) Neutrophils # 6.610^3/ul (1.6-7.5) Lymphocytes # 1.010^3/ul (0.8-2.9) Monocytes # 0.910^3/ul (0.3-0.9) Eosinophils # 0.110^3/ul (0.0-0.5) Basophils # 0.010^3/ul (0.0-0.1) Nucleated Red Blood Cells # 0.010^3/ul (0.0-0.0) Sodium Level 140mmol/L (135-144) Potassium Level 3.4mmol/L (3.5-5.1) Chloride Level 105mmol/L (97-110) Carbon Dioxide Level 26mmol/L (21-31) Anion Gap 12 (8-16) Blood Urea Nitrogen 11mg/dl (7-20) Creatinine 0.83mg/dl (0.61-1.24) Glucose Level 114mg/dl (70-220) Calcium Level 8.2mg/dl (8.4-10.2) Phosphorus Level 2.8mg/dl (2.5-4.9) Magnesium Level 1.9mg/dl (1.7-2.5) Test 02/21/17 11:43 Bedside Glucose 76mg/dL (70-220) STEPHANIE CUEVAS Feb 21, 2017 16:21
[2017-02-21] MEDS ORDERED: LEVOFLOXACIN 750 MG TABLET PO SCH (21:00)
== END 2017-02-21 14:00 | disposition home health service (06) | DRG 871 ==
LOC: E/R 17:57 → PP2 19:53
PROVIDERS: ADMIT Hospitalist; ATTEND Hospitalist
DX: A41.9 Sepsis, unspecified organism (principal); J18.9 Pneumonia, unspecified organism; N30.00 Acute cystitis without hematuria; R65.20 Severe sepsis without septic shock; E66.01 Morbid (severe) obesity due to excess calories; E11.65 Type 2 diabetes mellitus with hyperglycemia; Z91.14 Patient's other noncompliance with medication regimen; Z91.19 Patient's noncompliance with other medical treatment and regimen; Z86.73 Personal history of transient ischemic attack (TIA), and cerebral infarction without residual deficits
CPT/HCPCS: 36415; 71010; 71020; 80048; 80053; 80061; 81001; 82803; 82962; 83036; 83605; 83735; 84100; 84436; 84443; 84479; 84484; 85025; 85610; 85730; 87040; 87086; 87400; 93005; 93970; 96374; 96375; 97162; J0692; J1650; J1815; J1956; J2543; J3370; J3475; J7030; J7050

== ENCOUNTER 2017-07-23 17:20 | Emergency (ER) | END 2017-07-23 21:31 | disposition home or self-care (01) ==

== ENCOUNTER 2017-08-18 06:33 | Emergency (ER) | END 2017-08-18 09:26 | disposition home or self-care (01) ==